=== PATIENT | male | born 1960 | race Caucasian/White ===

== ENCOUNTER 2016-09-10 14:24 | Emergency (ER) | payer OTHER ==
[~2016-09-10] VITALS: Ht 167.6 cm; Wt 83.5 kg
[~2016-09-10 14:24] MED LIST: HYDR-762 PO; OMEP40CA3 PO; ZOF8 PO
[2016-09-10 14:34] VITALS: Ht 167.6 cm; Wt 83.5 kg
[2016-09-10] MEDS ORDERED: PANTOPRAZOLE (EC) 40 MG TAB PO ONE (15:30)
[2016-09-10] MEDS ORDERED: LIDOCAINE/MYLANTA 40 ML BTL PO ONE (15:30)
[2016-09-10] MEDS ORDERED: OMEP40CA6 PO (16:22)
--- NOTE | 2016-09-10 16:44 | ERD ---
ER Documentation Chief Complaint Date/Time DATE: 09/10/16 TIME: 16:41 Chief Complaint epigastric pain HPI 55-year-old male with a past medical history of gastritis presents the ED complaining of epigastric pain that started earlier today. States that he ran out of his omeprazole medication and is here for a medication refill. States that this epigastric pain feels like his gastritis. Denies that food worsens his pain. Denies any fever, chills, chest pain, shortness of breath, cough, nausea, vomiting, diarrhea. Denies any scrotal pain, dysuria, urgency, frequency, hematuria. ROS All systems reviewed and are negative except as per history of present illness. Medications Home Meds Active Scripts Omeprazole* (Omeprazole*) 40 Mg Capsule., 40 MG PO DAILY, #30 CAP Prov:AWA RAYO PA-C 09/10/16 Hydrocodone Bit-Acetaminophen* ([place]*) 10-325 Mg Tablet, 1 TAB PO Q6 Y for PAIN , #10 TAB Prov:KATHI CULVER MD 12/20/15 Ondansetron Hcl* (Zofran* ODT) 8 mg -ODT Tab.disper, 8 MG PO Q6 Y for NAUSEA AND /OR VOMITING, #20 TAB Prov:KATHI CULVER MD 12/20/15 Omeprazole* (Prilosec*) 40 Mg Capsule., 40 MG PO DAILY, #60 CAP Prov:KATHI CULVER MD 12/20/15 Allergies Allergies: Coded Allergies: No Known Allergy (Unverified , 12/20/15) PMhx/Soc History of Surgery: No Anesthesia Reaction: No Hx Neurological Disorder: No Hx Respiratory Disorders: No Hx Cardiac Disorders: No Hx Psychiatric Problems: No Hx Miscellaneous Medical Probl: No Hx Alcohol Use: No Hx Substance Use: No Hx Tobacco Use: Yes Smoking Status: Current some day smoker Physical Exam Vitals Vital Signs Date Time Temp Pulse Resp B/P Pulse Ox O2 Delivery O2 Flow Rate FiO2 09/10/16 14:34 98.2 73 18 121/70 100 Physical Exam Const: Odw-onw-sjhkchmsp, well-nourished. In no acute distress. Head: Atraumatic, normocephalic Eyes: Normal Conjunctiva without injection. No purulent discharge. ENT: Normal external ear, nose. Moist oropharynx without tonsillar exudates. Non -erythematous pharynx. Uvula midline. No drooling. No trismus. Neck: No cervical midline tenderness. Full range of motion. No meningismus. No cervical lymphadenopathy. No JVD. Resp: Clear to auscultation bilaterally. No wheezing, rhonchi, rales, or crackles. No accessory muscle use. No retractions. Cardio: Regular rate and rhythm. No murmurs, rubs or gallops. Abd: Soft, tenderness to palpation of epigastric, non distended. Normal bowel sounds. No palpable masses. No rebound tenderness. No guarding. Negative McBurney's point. Negative psoas sign. Negative obturator sign. Skin: No petechiae or rashes Back: No midline tenderness. No CVA tenderness. Ext: No cyanosis, or edema. Neur: Awake and alert. Normal gait. Normal coordination. Psych: Normal Mood and Affect Results 24 hrs Current Medications Medications (Trade) Dose Ordered Sig/Ashanti Route PRN Reason Start Time Stop Time Status Last Admin Dose Admin Miscellaneous Medication (Gi Cocktail (2)) 40 ml ONCE ONCE PO 09/10/16 15:30 09/10/16 15:31 DC 09/10/16 16:10 Pantoprazole (Protonix Tab) 40 mg ONCE ONCE PO 09/10/16 15:30 09/10/16 15:31 DC 09/10/16 16:10 Procedures/MDM 55-year-old male with with a past medical history of gastritis presents the ED complaining of epigastric pain. Patient is afebrile nontoxic appearing. Patient has normal vital signs. Patient was given GI cocktail, Protonix here in the ED with improvement of his pain. Patient's pain is likely due to gastritis. A differential diagnosis considered includes but is not limited to gastritis, GERD, peptic ulcer disease, cholecystitis, choledocholithiasis, cholangitis, pancreatitis, appendicitis, bowel obstruction, ileus, volvulus, nephrolithiasis, pyelonephritis, hepatitis, perforated viscus, diverticulitis, abdominal hernia, acute abdomen, mesenteric ischemia or other emergent conditions. Blood work consisting of CBC, CMP, lipase was discussed with the patient at this time however he stated that he did not want to obtain blood work. Stated that this feels like his gastritis. Low suspicion for acute abdomen, cholecystitis, gallstone pancreas-itis, pancreatitis, appendicitis, or other emergent conditions. 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 Instructed patient to return to the ED sooner for any worsening symptoms. Patient's questions were answered. Patient understood and agreed with discharge plan. Patient discharged stable. Departure Diagnosis: Primary Impression: Epigastric pain Condition: Stable Patient Instructions: Gastritis (Adult), Gastritis Vs. Ulcer Referrals: [facility] Usted se baker hecho un examen mdico de control que le indica que no est en magdalena condicin que requiera tratamiento urgente en el Departamento de Emergencia. Un estudio ms profundo y el tratamiento de richardson condicin pueden esperar sin ningn riesgo hasta que usted sea atendida/o en el consultorio de richardson mdico o magdalena cl joann. Es responsabilidad suya arreglar magdalena caitlin para el seguimiento del scott. MANEJO DE CONDICIONES NO URGENTES EN EL FUTURO 1) Si usted tiene un mdico de atencin primaria: Usted debera llamar a richardson mdico de atencin primaria antes de venir al departamento de emergencia. Despus de las horas de consultorio, richardson doctor o richardson asociado/a est disponible por telfono. El mdico o enfermero de chace en el servicio telefnico puede asesorarle por miguel medio para atender el problema, o scott contrario se puede programar magdalena caitlin. 2) Si usted no tiene un mdico de atencin primaria: Llame al mdico o clnica de referencia que aparece abajo elen las horas de consultorio para hacer magdalena caitlin para que le vean. CLINICAS: [facility] 220 [phone] [address] [facility] 907 [phone] [address] [facility] 679 [phone] [facility] [phone] [facility]. [place] [id number] [phone] [facility]. [phone] [address] [facility]. [facility] () Usangelica se baker hecho un examen mdico de control que le indica que no est en magdalena condicin que requiera tratamiento urgente en el Departamento de Emergencia. Un estudio ms profundo y el tratamiento de richardson condicin pueden esperar sin ningn riesgo hasta que usted sea atendida/o en el consultorio de richardson mdico o magdalena cl joann. Es responsabilidad suya arreglar magdalena caitlin para el seguimiento del scott. MANEJO DE CONDICIONES NO URGENTES EN EL FUTURO 1) Si usted tiene un mdico de atencin primaria: Usted debera llamar a richardson mdico de atencin primaria antes de venir al departamento de emergencia. Despus de las horas de consultorio, richardson doctor o richardson asociado/a est disponible por telfono. El mdico o enfermero de chace en el servicio telefnico puede asesorarle por miguel medio para atender el problema, o scott contrario se puede programar magdalena caitlin. 2) Si usted no tiene un mdico de atencin primaria: Llame al mdico o condado institucions de referencia que aparece abajo elen las horas de consultorio para hacer magdalena caitlin para que le vean. SI USTED NO PUEDE PAGAR PARA ROSALINDA UN MEDICO puede ir a: [facility] [address] [place] [address] [facility] [address] [place] [address] [facility] [address] [place] [address] PARA OPAL [facility] [address] [place] [address] Additional Instructions: Visite a richardson mdico danielleana para un EXAMEN.Regrese a estas instalaciones si no se mejora sid esperbamos o sid le dijimos. AWA RAYO PA-C Sep 10, 2016 16:43
== END 2016-09-10 16:41 | disposition home or self-care (01) ==
LOC: FTE 14:24
DX: R10.13 Epigastric pain (principal); F17.210 Nicotine dependence, cigarettes, uncomplicated
CPT/HCPCS: 99283

== ENCOUNTER 2019-03-07 17:31 | Inpatient (IN) | payer BC, OTHER ==
[2019-03-07] VITALS (7 sets, daily range): BP systolic 107–134; BP diastolic 62–70; PULSE 70–77; RESP 14–22; Ht 167.6 cm; Wt 79.5 kg
[~2019-03-07] VITALS: Ht 167.6 cm; Wt 79.5 kg
[~2019-03-07 17:31] MED LIST changes: +OMEP40CA6 PO
[2019-03-07] MEDS ORDERED: ONDANSETRON 4 MG INJ IV STA (18:57)
[2019-03-07] MEDS ORDERED: PIPER-TAZO 3.375 GM IV (PMX) 100 ML IVPB STA (18:57)
[2019-03-07] MEDS ORDERED: morphine 4 MG/ML VIAL IV STA ×2 (18:57→19:39)
[2019-03-07] MEDS ORDERED: SODIUM CHLORIDE 0.9% 1L BAG IV* STA (18:58)
--- NOTE | 2019-03-07 19:08 | ERD ---
ER Documentation Chief Complaint Chief Complaint c/o epigastric pain started yesterday HPI 58-year-old male presenting with centralized abdominal pain since yesterday that has significantly worsened today. He denies any associated nausea, vomiting, fever, chills, constipation, or diarrhea. No melena or hematochezia. Had one bowel movement today which was normal. Pain is severe, he is unable to describe it. He states it is all over his abdomen now. No alleviating or exacerbating factors. ROS All systems reviewed and are negative except as per history of present illness. Medications Home Meds Active Scripts Omeprazole* (Omeprazole*) 40 Mg Capsule., 40 MG PO DAILY, #30 CAP Prov:AWA RAYO PA-C 09/10/16 Hydrocodone Bit-Acetaminophen* ([place]*) 10-325 Mg Tablet, 1 TAB PO Q6 PRN for PAIN, #10 TAB Prov:KATHI CULVER MD 12/20/15 Ondansetron Hcl* (Zofran* ODT) 8 mg -ODT Tab.disper, 8 MG PO Q6 PRN for NAUSEA AND/OR VOMITING, #20 TAB Prov:KATHI CULVER MD 12/20/15 Omeprazole* (Prilosec*) 40 Mg Capsule., 40 MG PO DAILY, #60 CAP Prov:KATHI CULVER MD 12/20/15 Allergies Allergies: Coded Allergies: No Known Allergy (Unverified , 12/20/15) PMhx/Soc History of Surgery: No Anesthesia Reaction: No Hx Neurological Disorder: No Hx Respiratory Disorders: No Hx Cardiac Disorders: No Hx Psychiatric Problems: No Hx Miscellaneous Medical Probl: Yes Hx Alcohol Use: No Hx Substance Use: No Hx Tobacco Use: Yes FmHx Family History: No diabetes Physical Exam Vitals Vital Signs Date Temp Pulse Resp B/P (MAP) Pulse Ox O2 O2 Flow FiO2 Time Delivery Rate 03/07/19 97.1 89 20 126/67 97 17:36 (86) Physical Exam Const: Writhing around in bed, in significant distress due to pain. No diaphoresis. Nontoxic Head: Atraumatic Eyes: Normal Conjunctiva ENT: Normal External Ears, Nose and Mouth. Neck: Full range of motion. No meningismus. Resp: Clear to auscultation bilaterally Cardio: Regular rate and rhythm, no murmurs Abd: Distended, rigid, diffusely tender to palpation with peritoneal signs. Hypoactive bowel sounds Skin: No petechiae or rashes Back: No midline or flank tenderness Ext: No cyanosis, or edema Neur: Awake and alert Psych: Normal Mood and Affect Result Diagram: 03/07/19190503/07/191905 Results 24 hrs Laboratory Tests Test 03/07/19 19:06 03/07/19 19:35 White Blood Count 14.2 10^3/ul Red Blood Count 5.59 10^6/ul Hemoglobin 16.3 g/dl Hematocrit 47.7 % Mean Corpuscular Volume 85.3 fl Mean Corpuscular Hemoglobin 29.2 pg Mean Corpuscular Hemoglobin Concent 34.2 g/dl Red Cell Distribution Width 13.5 % Platelet Count 269 10^3/UL Mean Platelet Volume 10.9 fl Immature Granulocytes % 0.400 % Neutrophils % 88.5 % Lymphocytes % 6.0 % Monocytes % 4.9 % Eosinophils % 0.0 % Basophils % 0.2 % Nucleated Red Blood Cells % 0.0 /100WBC Immature Granulocytes # 0.050 10^3/ul Neutrophils # 12.6 10^3/ul Lymphocytes # 0.9 10^3/ul Monocytes # 0.7 10^3/ul Eosinophils # 0.0 10^3/ul Basophils # 0.0 10^3/ul Nucleated Red Blood Cells # 0.0 10^3/ul Prothrombin Time 12.8 Sec Prothrombin Time Ratio 1.0 INR International Normalized Ratio 0.95 Activated Partial Thromboplast Time 24.9 Sec Sodium Level 142 mmol/L Potassium Level 4.1 mmol/L Chloride Level 105 mmol/L Carbon Dioxide Level 23 mmol/L Anion Gap 14 Blood Urea Nitrogen 18 mg/dl Creatinine 1.08 mg/dl Est Glomerular Filtrat Rate mL/min > 60 mL/min Glucose Level 157 mg/dl Calcium Level 9.2 mg/dl Total Bilirubin 0.8 mg/dl Direct Bilirubin 0.00 mg/dl Indirect Bilirubin 0.8 mg/dl Aspartate Amino Transf (AST/SGOT) 33 IU/L Alanine Aminotransferase (ALT/SGPT) 23 IU/L Alkaline Phosphatase 71 IU/L Troponin I Pending Total Protein 8.6 g/dl Albumin 4.5 g/dl Globulin 4.10 g/dl Albumin/Globulin Ratio 1.09 Lipase 109 U/L POC Venous Lactate 2.0 mmol/L Current Medications Medications Dose Sig/Ashanti Start Time Status Last (Trade) Ordered Route PRN Stop Time Admin Dose Reason Admin Morphine 4 mg ONCE STAT 03/07/19 DC 03/07/19 Sulfate IV 18:57 03/07/19 19:10 (morphine) 18:59 Ondansetron 4 mg ONCE STAT 03/07/19 DC 03/07/19 HCl (Zofran IV 18:57 03/07/19 19:10 Inj) 18:59 Piperacillin 100 ml @ ONCE STAT 03/07/19 DC 03/07/19 Sod/ 200 mls/hr IVPB 18:57 03/07/19 19:27 Tazobactam 19:26 Sod Sodium 2,390 ml BOLUS OVER 2 03/07/19 DC 03/07/19 Chloride HOURS STAT 18:58 03/07/19 19:10 (NS) IV* 18:59 Morphine 4 mg ONCE STAT 03/07/19 DC Sulfate IV 19:39 03/07/19 (morphine) 19:40 Lidocaine 15 ml ONCE ONCE 03/07/19 (Xylocaine PO 20:00 03/07/19 (Viscous)) 20:01 Procedures/MDM EMERGENT LABS AND DIAGNOSTIC STUDIES: Lab Results above were reviewed and interpreted by me. CBC: Leukocytosis, concerning for infection CMP: No evidence of clinically significant electrolyte abnormality, acidosis, renal failure, hypoglycemia, liver disease, or biliary obstruction Lipase: no evidence of pancreatitis Troponin within normal limits, not indicative of cardiac ischemia Lactate within normal limits without evidence of sepsis or tissue hypoperfusion UA: no evidence of infection 12-lead EKG was interpreted by Subha Daniel MD: Normal Sinus Rhythm with ventricular rate of 74 beats per minute Normal axis Normal intervals No acute ST or T wave changes suggestive of acute ischemia or STEMI. Radiology Results as interpreted by Radiology below were reviewed by Kassandra Daniel MD: CT abdomen and pelvis shows evidence of acute appendicitis with small bowel obstruction. No perforation per radiologist Initial Nursing notes reviewed. Previous Medical Records requested via the Electronic Health Record. EMERGENCY DEPARTMENT COURSE / MEDICAL DECISION MAKING: Patient presenting with generalized abdominal pain. Exam did show signs of acute surgical abdomen. Sepsis work-up was initiated. IV fluids and broad- spectrum antibiotics given. No evidence of severe sepsis or septic shock. CT did confirm evidence of appendicitis without evidence of abscess or perforation. He also has an associated small bowel obstruction. NG tube was placed. Patient will be admitted for further management. Surgeon on-call notified. Accepting Care Team: Current data and ongoing care discussed. Time: Time of admission Primary Provider: Dr. Elliott Consulting: Dr. Balderas Outstanding Data: none Departure Diagnosis: Primary Impression: Acute appendicitis with generalized peritonitis Appendicitis gangrene presence: without gangrene Appendicitis perforation presence: unspecified whether perforation present Appendicitis abscess presence: without abscess Qualified Codes: K35.20 - Acute appendicitis with generalized peritonitis, without abscess Additional Impression: Small bowel obstruction Condition: Serious SONIA DANIEL MD Mar 07, 2019 19:08
[2019-03-07] MEDS ORDERED: ONDANSETRON 4 MG INJ IV PRN ×3 (20:00→23:30)
[2019-03-07] MEDS ORDERED: LIDOCAINE 2% VISC 15 ML CUP PO ONE (20:00)
--- NOTE | 2019-03-07 21:23 | PREAC ---
Date/Time of Note Date/Time of Note DATE: 03/07/19 TIME: 21:22 Anesthesia Eval and Record Evaluation Time Pre-Procedure Interview DATE: 03/07/19 TIME: 21:22 Age 58 Sex male NPO: 8 hrs Preoperative diagnosis Acute appendicitis Planned procedure Laparoscopic appendectomy Past Medical History Past Medical History: Includes Cardio: HTN Pulm: Smoking Hx GI: GERD Surgery & Anesthesia Issues No known issue Meds Anticoagulation: No Beta Jayla within 24 hr: No Reason Beta Jayla not given: Pt. not on B-Jayla Active Scripts Omeprazole* (Omeprazole*) 40 Mg Capsule., 40 MG PO DAILY, #30 CAP Prov:AWA RAYO PA-C 09/10/16 Hydrocodone Bit-Acetaminophen* ([place]*) 10-325 Mg Tablet, 1 TAB PO Q6 PRN for PAIN, #10 TAB Prov:KATHI CULVER MD 12/20/15 Ondansetron Hcl* (Zofran* ODT) 8 mg -ODT Tab.disper, 8 MG PO Q6 PRN for NAUSEA AND/OR VOMITING, #20 TAB Prov:KATHI CULVER MD 12/20/15 Omeprazole* (Prilosec*) 40 Mg Capsule., 40 MG PO DAILY, #60 CAP Prov:KATHI CULVER MD 12/20/15 Current Medications Ondansetron HCl (Zofran Inj) 4 mg BRIDGE ORDER PRN IV NAUSEA/VOMITING; Start 03/07/19 at 20:00; Stop 03/08/19 at 19:59 Meds reviewed: Yes Allergies Coded Allergies: No Known Allergy (Unverified , 12/20/15) Allergies Reviewed: Yes Labs/Studies Labs Reviewed: Reviewed by anesthesiologist Result Diagram: 03/07/19190503/07/191905 Laboratory Tests 03/07/19 19:06 test: N/A Studies: ECG, CXR, Other Pre-procedure Exam Last vitals Vital Signs Date Temp Pulse Resp B/P (MAP) Pulse Ox O2 O2 Flow FiO2 Time Delivery Rate 03/07/19 100.9 81 22 141/88 97 Room Air 20:20 (105) Airway: Adequate mouth opening, Adequate thyromental dist Mallampati: Mallampati II Teeth: Normal Lung: Normal Heart: Normal ASA Physical Status ASA physical status: 2 Emergency: E Planned Anesthetic General/MAC: ETT, Other (RSI) Planned Pain Management Parenteral pain med, Local by surgeon Pre-operative Attestations Prior to commencing anesthesia and surgery, the patient was re-evaluated, there was verification of: *The patient's identity *The results of appropriate recent lab work and preoperative vital signs *The above evaluation not changing prior to induction *Anesthetic plan, risk benefits, alternative and complications discussed with patient/family; questions answered; patient/family understands, accepts and wishes to proceed. ELVA COELLO MD Mar 07, 2019 21:23
[2019-03-07] MEDS ORDERED: MIDAZOLAM 1 MG/ML 2 ML INJ ONE (21:34)
[2019-03-07] MEDS ORDERED: FAMOTIDINE 20 MG INJ ONE (21:35)
[2019-03-07] MEDS ORDERED: FENTAnyl 50 MCG/ML VIAL IV PRN ×2 (22:00)
[2019-03-07] MEDS ORDERED: BUPIVACAINE 0.5%/EPI (SDV) 30 ML INJ ONE (22:00)
[2019-03-07] MEDS ORDERED: ACETAMINOPHEN 1000MG/100ML IV 100 ML IVPB ONE (22:00)
[2019-03-07] MEDS ORDERED: HYDROmorphONE 1 MG/5 ML IV SYRINGE IV PRN ×3 (22:00)
[2019-03-07] MEDS ORDERED: LABETALOL HCL 20MG INJ IV PRN (22:00)
--- NOTE | 2019-03-07 22:07 | CONS ---
Assessment/Plan Assessment/Plan Assessment/Plan (Daily) Acute appendicitis complicated by partial small bowel obstruction. Patient is going to laparoscopic possible open appendectomy.We discussed risks and benefits were discussed possible side effects, possible complications including but not limited to bleeding, infection, injury to other organs, anesthesia complication, patient understood risk and benefits and wished to proceed. Consultation Date/Type/Reason Admit Date/Time Mar 07, 2019 at 19:43 Date of Consultation: Mar 07, 2019 Type of Consult Surgical Date/Time of Note DATE: 03/07/19 TIME: 22:03 Hx of Present Illness 78-year-old female no significant past medical history presents with her daughter who is interpreting. The patient has had approximately 2 days of epigastric abdominal pain that radiates to the bilateral back. Patient notes the pain is sharp, with associated nausea and vomiting. The emesis is nonbloody and nonbilious. 2 episodes of looser stool. No recent travel, sick contacts, antibiotics. She denies any chest pain or exertional symptoms. No clear triggers or alleviating factors. She denies any fevers. No abdominal surgery history. Symptoms are moderate to severe currently. CT performed which showed partial small bowel obstruction secondary to appendicitis. Dilated appendix with fat stranding. Constitutional: no complaints, improved Eyes: no complaints ENT: no complaints Respiratory: no complaints Cardiovascular: no complaints Gastrointestinal: no complaints Genitourinary: no complaints Musculoskeletal: no complaints Skin: no complaints Neurologic: no complaints Endocrine: no complaints Lymphatic: no complaints Psychological: no complaints, nl mood/affect Immunologic: no complaints Past Medical History Medical History: no pertinent history Home Meds Active Scripts Omeprazole* (Omeprazole*) 40 Mg Capsule., 40 MG PO DAILY, #30 CAP Prov:AWA RAYO PA-C 09/10/16 Hydrocodone Bit-Acetaminophen* ([place]*) 10-325 Mg Tablet, 1 TAB PO Q6 PRN for PAIN, #10 TAB Prov:KATHI CULVER MD 12/20/15 Ondansetron Hcl* (Zofran* ODT) 8 mg -ODT Tab.disper, 8 MG PO Q6 PRN for NAUSEA AND/OR VOMITING, #20 TAB Prov:KATHI CULVER MD 12/20/15 Omeprazole* (Prilosec*) 40 Mg Capsule., 40 MG PO DAILY, #60 CAP Prov:KATHI CULVER MD 12/20/15 Medications Current Medications Ondansetron HCl (Zofran Inj) 4 mg BRIDGE ORDER PRN IV NAUSEA/VOMITING; Start 03/07/19 at 20:00; Stop 03/08/19 at 19:59 Hydromorphone HCl (Dilaudid) 0.2 mg PACU PRN IV MILD PAIN 1-3; Start 03/07/19 at 22:00; Status UNV Hydromorphone HCl (Dilaudid) 0.4 mg PACU PRN IV MOD PAIN 4-6; Start 03/07/19 at 22:00; Status UNV Hydromorphone HCl (Dilaudid) 0.6 mg PACU PRN IV SEVERE PAIN 7-10; Start 03/07/19 at 22:00; Status UNV Fentanyl (Sublimaze) 25 mcg PACU ORDER PRN IV MILD PAIN 1-3; Start 03/07/19 at 22:00; Status UNV Fentanyl (Sublimaze) 50 mcg PACU ORDER PRN IV MOD PAIN 4-6; Start 03/07/19 at 22:00; Status UNV Fentanyl (Sublimaze) 75 mcg PACU ORDER PRN IV SEVERE PAIN 7-10; Start 03/07/19 at 22:00; Status UNV Ondansetron HCl (Zofran Inj) 4 mg PACU ORDER PRN IV NAUSEA/VOMITING; Start 03/07/19 at 22:00; Status UNV Labetalol HCl (Labetalol) 5 mg PACU ORDER PRN IV HIGH BLOOD PRESSURE; Start 03/07/19 at 22:00; Status UNV Acetaminophen 100 ml @ 400 mls/hr ONCE ONCE IVPB ; Start 03/07/19 at 22:00; Stop 03/07/19 at 22:14; Status UNV Allergies: Coded Allergies: No Known Allergy (Unverified , 12/20/15) Past Surgical History Past Surgical Hx: no surgical history Family History Significant Family History: no pertinent family hx Social History Smoking Status: Current some day smoker Exam/Review of Systems Exam Vitals Vital Signs Date Temp Pulse Resp B/P (MAP) Pulse Ox O2 O2 Flow FiO2 Time Delivery Rate 03/07/19 100.9 81 22 141/88 97 Room Air 20:20 (105) Constitutional: alert, oriented, well developed Psych: no complaints, nl mood/affect Head: normocephalic, atraumatic Eyes: nl conjunctiva, EOMI, nl lids, nl sclera, PERRL ENMT: nl external ears & nose, nl lips & teeth, nl nasal mucosa & septum Neck: supple, non-tender Respiratory: clear to auscultation, normal air movement Cardiovascular: regular rate and rhythm, nl pulses Gastrointestinal: other (Abdomen is distended there is a marked right lower quadrant tenderness in the usual to the epigastrium.) Musculoskeletal: nl extremities to inspection, nl gait and stance Extremities: normal pulses Neurological: ATTRACTION ATTENDANT II-XII intact, nl mental status, nl speech, nl strength Skin: nl turgor; No rash or lesions Lymph: nl lymph nodes Results Result Diagram: 03/07/19190503/07/191905 Results 24hrs Laboratory Tests Test 03/07/19 19:06 03/07/19 19:35 White Blood Count 14.2 H Red Blood Count 5.59 Hemoglobin 16.3 Hematocrit 47.7 Mean Corpuscular Volume 85.3 Mean Corpuscular Hemoglobin 29.2 Mean Corpuscular Hemoglobin Concent 34.2 Red Cell Distribution Width 13.5 Platelet Count 269 Mean Platelet Volume 10.9 H Immature Granulocytes % 0.400 Neutrophils % 88.5 H Lymphocytes % 6.0 L Monocytes % 4.9 Eosinophils % 0.0 Basophils % 0.2 Nucleated Red Blood Cells % 0.0 Immature Granulocytes # 0.050 H Neutrophils # 12.6 H Lymphocytes # 0.9 Monocytes # 0.7 Eosinophils # 0.0 Basophils # 0.0 Nucleated Red Blood Cells # 0.0 Prothrombin Time 12.8 Prothrombin Time Ratio 1.0 INR International Normalized Ratio 0.95 Activated Partial Thromboplast Time 24.9 Sodium Level 142 Potassium Level 4.1 Chloride Level 105 Carbon Dioxide Level 23 Anion Gap 14 H Blood Urea Nitrogen 18 Creatinine 1.08 Est Glomerular Filtrat Rate mL/min > 60 Glucose Level 157 Calcium Level 9.2 Total Bilirubin 0.8 Direct Bilirubin 0.00 Indirect Bilirubin 0.8 Aspartate Amino Transf (AST/SGOT) 33 Alanine Aminotransferase (ALT/SGPT) 23 Alkaline Phosphatase 71 Troponin I < 0.012 Total Protein 8.6 H Albumin 4.5 Globulin 4.10 H Albumin/Globulin Ratio 1.09 Lipase 109 Lactic Acid Level 2.4 *H POC Venous Lactate 2.0 Medications Medication Current Medications Ondansetron HCl (Zofran Inj) 4 mg BRIDGE ORDER PRN IV NAUSEA/VOMITING; Start 03/07/19 at 20:00; Stop 03/08/19 at 19:59 Hydromorphone HCl (Dilaudid) 0.2 mg PACU PRN IV MILD PAIN 1-3; Start 03/07/19 at 22:00; Status UNV Hydromorphone HCl (Dilaudid) 0.4 mg PACU PRN IV MOD PAIN 4-6; Start 03/07/19 at 22:00; Status UNV Hydromorphone HCl (Dilaudid) 0.6 mg PACU PRN IV SEVERE PAIN 7-10; Start 03/07/19 at 22:00; Status UNV Fentanyl (Sublimaze) 25 mcg PACU ORDER PRN IV MILD PAIN 1-3; Start 03/07/19 at 22:00; Status UNV Fentanyl (Sublimaze) 50 mcg PACU ORDER PRN IV MOD PAIN 4-6; Start 03/07/19 at 22:00; Status UNV Fentanyl (Sublimaze) 75 mcg PACU ORDER PRN IV SEVERE PAIN 7-10; Start 03/07/19 at 22:00; Status UNV Ondansetron HCl (Zofran Inj) 4 mg PACU ORDER PRN IV NAUSEA/VOMITING; Start 03/07/19 at 22:00; Status UNV Labetalol HCl (Labetalol) 5 mg PACU ORDER PRN IV HIGH BLOOD PRESSURE; Start 03/07/19 at 22:00; Status UNV Acetaminophen 100 ml @ 400 mls/hr ONCE ONCE IVPB ; Start 03/07/19 at 22:00; Stop 03/07/19 at 22:14; Status UNV LUKE PRESTON MD Mar 07, 2019 22:07
[2019-03-07] MEDS ORDERED: ONDANSETRON 4 MG INJ ONE (22:38)
[2019-03-07] MEDS ORDERED: DEXAMETHASONE 4 MG/ML 5 ML INJ ONE (22:38)
[2019-03-07] MEDS ORDERED: LABETALOL HCL 20MG INJ ONE (22:48)
[2019-03-07] MEDS ORDERED: SUGAMMADEX SODIUM 200 MG/2 ML VIAL IV ONE (23:11)
--- NOTE | 2019-03-07 23:17 | OPR ---
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 We discussed risks and benefits were discussed possible side effects, possible complications including but not limited to bleeding, infection, injury to other organs, anesthesia complication, patient understood risk and benefits and wished to proceed. Procedure Description The risks, benefits and alternatives of the procedure were discussed with the patient and informed consent was obtained. We discussed with the patient and the family possibility of the bleeding, infection, injury to other organs. Patient was brought to operating room positioned supine. General endotracheal anesthesia was induced. Abdomen was prepped and draped in the usual sterile fashion. Timeout was performed. Antibiotics were given previously. Through the small infraumbilical incision the Veress needle was placed and the abdomen was insufflated with CO2 up to 15 mmHg. Through the same incision 5 mm trocar was placed under direct control of the laparoscope. 2 additional trocars were placed in the midline, 12 mm trocar just above the pubis and 5 mm trocar midline between the pubis and the umbilicus. The appendix was visualized and was found to be acutely inflamed with phlegmon. The window was created using blunt dissection at the mesentery of the appendix next to the cecum and appendix was divided using endoscopic stapler with white load. The additional load of the same stapler was used to divide the mesentery. The hemostasis was confirmed. Local bleeding was controlled with the cautery. The abdomen was irrigated all the fluid was carefully sucked out. There is appendix was removed through the 12 mm trocar using Endocatch. The abdomen was desufflated all trocars were removed. The 12 mm trocar was closed in 2 layers using 0 Vicryl to the fascia and 4-0 Monocryl for the skin. The 5 mm trocars were closed just using 4-0 Monocryl to the skin. Patient tolerated procedure well was extubated transferred to recovery room. LUKE PRESTON MD Mar 07, 2019 23:17
[2019-03-07] MEDS ORDERED: IBUPROFEN 600 MG TAB PO PRN (23:30)
[2019-03-07] MEDS ORDERED: DIPHENHYDRAMINE 50 MG INJ IV PRN (23:30)
[2019-03-07] MEDS ORDERED: METOCLOPRAMIDE 10 MG INJ IV PRN (23:30)
[2019-03-07] MEDS ORDERED: ACETAMINOPHEN 325 MG TAB PO PRN (23:30)
--- NOTE | 2019-03-07 23:31 | PAC ---
Date/Time of Note Date/Time of Note DATE: 03/07/19 TIME: 23:30 Post-Anesthesia Notes Post-Anesthesia Note Last documented vital signs T 98.4 RR 14 HR 74 BP 125/63 Sp02 97% Vital Signs Date Temp Pulse Resp B/P (MAP) Pulse Ox O2 O2 Flow FiO2 Time Delivery Rate 03/07/19 100.9 81 22 141/88 97 Room Air 20:20 (105) Activity: WNL Respiratory function: WNL Cardiovascular function: WNL Mental status: Baseline Pain reasonably controlled: Yes Hydration appropriate: Yes Nausea/Vomiting absent: Yes ELVA COELLO MD Mar 07, 2019 23:31
[2019-03-07] MEDS: FENTAnyl 50 MCG/ML VIAL IV PRN ×2 (23:35→23:46)
[2019-03-08] VITALS (14 sets, daily range): BP systolic 102–129; BP diastolic 56–71; PULSE 33–75; RESP 15–20
[2019-03-08] MEDS: D5W-0.45 NACL + KCL 20 MEQ 1,000 ML IV SCH ×3 (01:39→19:17)
[2019-03-08] MEDS: PIPER-TAZO 3.375 GM IV (PMX) 100 ML IVPB SCH ×4 (01:40→17:47)
--- NOTE | 2019-03-08 07:33 | HP ---
Date/Time of Note Date/Time of Note DATE: 03/08/19 TIME: 07:30 Assessment/Plan VTE Prophylaxis Risk score (from [facility] [place])>0 risk: 3 SCD applied (from [facility] [place]): Yes Pharmacological prophylaxis: NA/contraindicated Pharm contraindication: other (Patient has had abdominal surgery) Lines/Catheters IV Catheter Type (from [facility]): Peripheral IV Assessment/Plan Assessment/Plan 58-year-old male presents with abdominal pain secondary to Acute phlegmonous gangrenous appendicitis status post laparoscopic appendectomy PLAN -Pain management -Continue IV antibiotic -Clear liquid diet, advance as tolerated -DC when cleared by surgeon Result Diagram: 03/07/19 19003/07/19 190 Results 24hrs Laboratory Tests Test 03/07/19 19:06 03/07/19 19:35 03/07/19 22:10 03/08/19 00:57 White Blood Count 14.2 H Red Blood Count 5.59 Hemoglobin 16.3 Hematocrit 47.7 Mean Corpuscular Volume 85.3 Mean Corpuscular 29.2 Hemoglobin Mean Corpuscular 34.2 Hemoglobin Concent Red Cell Distribution 13.5 Width Platelet Count 269 Mean Platelet Volume 10.9 H Immature Granulocytes % 0.400 Neutrophils % 88.5 H Lymphocytes % 6.0 L Monocytes % 4.9 Eosinophils % 0.0 Basophils % 0.2 Nucleated Red Blood 0.0 Cells % Immature Granulocytes # 0.050 H Neutrophils # 12.6 H Lymphocytes # 0.9 Monocytes # 0.7 Eosinophils # 0.0 Basophils # 0.0 Nucleated Red Blood 0.0 Cells # Prothrombin Time 12.8 Prothrombin Time Ratio 1.0 INR International 0.95 Normalized Ratio Activated 24.9 Partial Thromboplast Time Sodium Level 142 Potassium Level 4.1 Chloride Level 105 Carbon Dioxide Level 23 Anion Gap 14 H Blood Urea Nitrogen 18 Creatinine 1.08 Est Glomerular Filtrat > 60 Rate mL/min Glucose Level 157 Calcium Level 9.2 Total Bilirubin 0.8 Direct Bilirubin 0.00 Indirect Bilirubin 0.8 Aspartate Amino 33 Transf (AST/SGOT) Alanine 23 Aminotransferase (ALT/SG PT) Alkaline Phosphatase 71 Troponin I < 0.012 Total Protein 8.6 H Albumin 4.5 Globulin 4.10 H Albumin/Globulin Ratio 1.09 Lipase 109 Lactic Acid Level 2.4 *H 1.5 1.6 POC Venous Lactate 2.0 HPI/ROS Admit Date/Time Admit Date/Time Mar 07, 2019 at 19:43 Hx of Present Illness Patient is a 58-year-old male with a history of GERD who presents the ER complaining of abdominal pain x2 days. Pain is mainly localized in the epigastric area. In the ER imaging shows acute appendicitis. He already underwent laparoscopic appendectomy with a finding of acute phlegmonous gangrenous appendicitis. Currently patient stable. Abdomen appears slightly distended PMH/Family/Social Past Medical History Medical History: other (See HPI) Medications Current Medications Ondansetron HCl (Zofran Inj) 4 mg BRIDGE ORDER PRN IV NAUSEA/VOMITING; Start 03/07/19 at 20:00; Stop 03/08/19 at 19:59 Piperacillin Sod/ Tazobactam Sod 100 ml @ 200 mls/hr Q6 IVPB Last administered on 03/08/19at 06:37; Admin Dose 200 MLS/HR; Start 03/08/19 at 00:00 Metoclopramide HCl (Reglan) 10 mg Q6H PRN IV NAUSEA AND/OR VOMITING; Start 03/07/19 at 23:30 Ondansetron HCl (Zofran Inj) 4 mg Q6H PRN IV NAUSEA AND/OR VOMITING; Start 03/07/19 at 23:30 Acetaminophen (Tylenol Tab) 650 mg Q6H PRN PO PAIN LEVEL 1-3 OR FEVER; Start 03/07/19 at 23:30 Ibuprofen (Motrin) 600 mg Q6H PRN PO PAIN LEVEL 1-3; Start 03/07/19 at 23:30 Ketorolac Tromethamine (Toradol) 30 mg Q6H PRN IV PAIN; Start 03/07/19 at 23:30; Stop 03/10/19 at 23:29 Hydromorphone HCl (Dilaudid) 0.5 mg Q4H PRN IV PAIN LEVEL 8-10; Start 03/07/19 at 23:30 Acetaminophen/ Hydrocodone Bitart ([place] (5/325)) 1 tab Q6H PRN PO PAIN LEVEL 4-7; Start 03/07/19 at 23:30 Potassium Chloride/Dextrose/ Sod Cl 1,000 ml @ 100 mls/hr Q10H IV Last administered on 03/08/19at 01:39; Admin Dose 100 MLS/HR; Start 03/07/19 at 23:17 Diphenhydramine HCl (Benadryl) 25 mg Q6H PRN IV PRURITUS; Start 03/07/19 at 23:30 Coded Allergies: No Known Allergy (Unverified , 12/20/15) Past Surgical History Past Surgical Hx: other (See HPI) Family History Significant Family History: no pertinent family hx Social History Alcohol Use: other Smoking Status: Former smoker Drug Use: none Exam/Review of Systems Vital Signs Vitals Vital Signs Date Temp Pulse Resp B/P (MAP) Pulse Ox O2 O2 Flow FiO2 Time Delivery Rate 03/08/19 98.6 57 17 110/66 95 07:26 (81) 03/08/19 Nasal 2.0 04:00 Cannula Intake and Output 03/07/19 03/07/19 03/08/19 1515:00 23:00 07:00 IntakeIntake Total 2290 ml OutputOutput Total 805 ml BalanceBalance 1485 ml Exam Constitutional: alert, oriented, well developed Head: normocephalic, atraumatic Eyes: EOMI, PERRL Respiratory: clear to auscultation, normal air movement Cardiovascular: regular rate and rhythm, nl pulses Gastrointestinal: other (Slightly distended. Surgical site clean) Extremities: normal pulses NATALIE MENDOZA MD Mar 08, 2019 07:33
[2019-03-08] MEDS: HYDROmorphONE 0.5 MG/0.5 ML SYG IV PRN ×2 (07:37→15:05)
--- NOTE | 2019-03-08 16:31 | PN ---
Date/Time of Note Date/Time of Note DATE: 03/08/19 TIME: 16:27 Assessment/Plan VTE Prophylaxis [place] [facility] [place]: 3 SCD applied (from [facility]): Yes Pharmacological prophylaxis: LMWH Lines/Catheters IV Catheter Type (from [facility]): Peripheral IV Assessment/Plan Assessment/Plan 1. Acute appendicitis, s/p lap appendectomy on 03/07/2019, follow up with surgery 2. Post op ileus, KUB 3. DVT prophylaxis: lovenox Result Diagram: 03/08/19 0826 03/08/19 0826 Results 24hrs Laboratory Tests Test 03/07/19 19:06 03/07/19 19:35 03/07/19 22:10 03/08/19 00:57 White Blood Count 14.2 H Red Blood Count 5.59 Hemoglobin 16.3 Hematocrit 47.7 Mean Corpuscular Volume 85.3 Mean Corpuscular 29.2 Hemoglobin Mean Corpuscular 34.2 Hemoglobin Concent Red Cell Distribution 13.5 Width Platelet Count 269 Mean Platelet Volume 10.9 H Immature Granulocytes % 0.400 Neutrophils % 88.5 H Lymphocytes % 6.0 L Monocytes % 4.9 Eosinophils % 0.0 Basophils % 0.2 Nucleated Red Blood 0.0 Cells % Immature Granulocytes # 0.050 H Neutrophils # 12.6 H Lymphocytes # 0.9 Monocytes # 0.7 Eosinophils # 0.0 Basophils # 0.0 Nucleated Red Blood 0.0 Cells # Prothrombin Time 12.8 Prothrombin Time Ratio 1.0 INR International 0.95 Normalized Ratio Activated 24.9 Partial Thromboplast Time Sodium Level 142 Potassium Level 4.1 Chloride Level 105 Carbon Dioxide Level 23 Anion Gap 14 H Blood Urea Nitrogen 18 Creatinine 1.08 Est Glomerular Filtrat > 60 Rate mL/min Glucose Level 157 Calcium Level 9.2 Total Bilirubin 0.8 Direct Bilirubin 0.00 Indirect Bilirubin 0.8 Aspartate Amino 33 Transf (AST/SGOT) Alanine 23 Aminotransferase (ALT/SG PT) Alkaline Phosphatase 71 Troponin I < 0.012 Total Protein 8.6 H Albumin 4.5 Globulin 4.10 H Albumin/Globulin Ratio 1.09 Lipase 109 Lactic Acid Level 2.4 *H 1.5 1.6 POC Venous Lactate 2.0 Test 03/08/19 08:26 White Blood Count 14.7 H Red Blood Count 4.80 Hemoglobin 13.9 L Hematocrit 41.0 L Mean Corpuscular Volume 85.4 Mean Corpuscular 29.0 Hemoglobin Mean Corpuscular 33.9 Hemoglobin Concent Red Cell Distribution 13.9 Width Platelet Count 221 Mean Platelet Volume 11.4 H Immature Granulocytes % 0.300 Neutrophils % 91.2 H Lymphocytes % 4.5 L Monocytes % 3.9 Eosinophils % 0.0 Basophils % 0.1 Nucleated Red Blood 0.0 Cells % Immature Granulocytes # 0.050 H Neutrophils # 13.4 H Lymphocytes # 0.7 L Monocytes # 0.6 Eosinophils # 0.0 Basophils # 0.0 Nucleated Red Blood 0.0 Cells # Sodium Level 140 Potassium Level 4.0 Chloride Level 108 Carbon Dioxide Level 23 Anion Gap 9 # Blood Urea Nitrogen 14 Creatinine 0.93 Est Glomerular Filtrat > 60 Rate mL/min Glucose Level 170 Calcium Level 8.5 Total Bilirubin 1.2 Direct Bilirubin 0.00 Indirect Bilirubin 1.2 H Aspartate Amino 19 Transf (AST/SGOT) Alanine 17 Aminotransferase (ALT/SG PT) Alkaline Phosphatase 40 L Total Protein 7.0 # Albumin 3.7 Globulin 3.30 H Albumin/Globulin Ratio 1.12 Subjective 24 Hr Interval Summary Free Text/Dictation abdominal pain passes flatus, no nausea or vomiting Exam/Review of Systems Exam Vitals Vital Signs Date Temp Pulse Resp B/P (MAP) Pulse Ox O2 O2 Flow FiO2 Time Delivery Rate 03/08/19 97.6 63 16 117/59 97 15:27 (78) 03/08/19 Nasal 2.0 09:19 Cannula Intake and Output 03/07/19 03/07/19 03/08/19 1515:00 23:00 07:00 IntakeIntake Total 2290 ml OutputOutput Total 805 ml BalanceBalance 1485 ml Constitutional: alert, oriented, well developed Psych: no complaints, nl mood/affect Head: normocephalic, atraumatic Eyes: nl conjunctiva, EOMI, nl lids, PERRL ENMT: nl external ears & nose, nl lips & teeth, nl nasal mucosa & septum Neck: supple, non-tender Respiratory: clear to auscultation, normal air movement; No congested cough, No crackles/rales, No diminished breath sounds, No in tercostal retraction, No labored breathing, No respirations, No tactile fremitus, No wheezing, No other Cardiovascular: regular rate and rhythm, nl pulses; No bruits, No diastolic murmur, No edema, No gallop, No irregular rhythm, No jugular venous distention (JVD), No murmurs/extra sounds, No rub, No systolic murmur, No S3, No S4, No other Gastrointestinal: nl liver, spleen, bowel sounds (hypoactive), distended Musculoskeletal: nl extremities to inspection Extremities: normal pulses; No calf tenderness, No cyanosis, No clubbing, No edema, No pitting pedal edema, No palpable cord, No tenderness, No other Neurological: SHIPPING & RECEIVING LEAD II-XII intact, nl mental status, nl speech, nl strength Results Results 24hrs Laboratory Tests Test 03/07/19 19:06 03/07/19 19:35 03/07/19 22:10 03/08/19 00:57 White Blood Count 14.2 H Red Blood Count 5.59 Hemoglobin 16.3 Hematocrit 47.7 Mean Corpuscular Volume 85.3 Mean Corpuscular 29.2 Hemoglobin Mean Corpuscular 34.2 Hemoglobin Concent Red Cell Distribution 13.5 Width Platelet Count 269 Mean Platelet Volume 10.9 H Immature Granulocytes % 0.400 Neutrophils % 88.5 H Lymphocytes % 6.0 L Monocytes % 4.9 Eosinophils % 0.0 Basophils % 0.2 Nucleated Red Blood 0.0 Cells % Immature Granulocytes # 0.050 H Neutrophils # 12.6 H Lymphocytes # 0.9 Monocytes # 0.7 Eosinophils # 0.0 Basophils # 0.0 Nucleated Red Blood 0.0 Cells # Prothrombin Time 12.8 Prothrombin Time Ratio 1.0 INR International 0.95 Normalized Ratio Activated 24.9 Partial Thromboplast Time Sodium Level 142 Potassium Level 4.1 Chloride Level 105 Carbon Dioxide Level 23 Anion Gap 14 H Blood Urea Nitrogen 18 Creatinine 1.08 Est Glomerular Filtrat > 60 Rate mL/min Glucose Level 157 Calcium Level 9.2 Total Bilirubin 0.8 Direct Bilirubin 0.00 Indirect Bilirubin 0.8 Aspartate Amino 33 Transf (AST/SGOT) Alanine 23 Aminotransferase (ALT/SG PT) Alkaline Phosphatase 71 Troponin I < 0.012 Total Protein 8.6 H Albumin 4.5 Globulin 4.10 H Albumin/Globulin Ratio 1.09 Lipase 109 Lactic Acid Level 2.4 *H 1.5 1.6 POC Venous Lactate 2.0 Test 03/08/19 08:26 White Blood Count 14.7 H Red Blood Count 4.80 Hemoglobin 13.9 L Hematocrit 41.0 L Mean Corpuscular Volume 85.4 Mean Corpuscular 29.0 Hemoglobin Mean Corpuscular 33.9 Hemoglobin Concent Red Cell Distribution 13.9 Width Platelet Count 221 Mean Platelet Volume 11.4 H Immature Granulocytes % 0.300 Neutrophils % 91.2 H Lymphocytes % 4.5 L Monocytes % 3.9 Eosinophils % 0.0 Basophils % 0.1 Nucleated Red Blood 0.0 Cells % Immature Granulocytes # 0.050 H Neutrophils # 13.4 H Lymphocytes # 0.7 L Monocytes # 0.6 Eosinophils # 0.0 Basophils # 0.0 Nucleated Red Blood 0.0 Cells # Sodium Level 140 Potassium Level 4.0 Chloride Level 108 Carbon Dioxide Level 23 Anion Gap 9 # Blood Urea Nitrogen 14 Creatinine 0.93 Est Glomerular Filtrat > 60 Rate mL/min Glucose Level 170 Calcium Level 8.5 Total Bilirubin 1.2 Direct Bilirubin 0.00 Indirect Bilirubin 1.2 H Aspartate Amino 19 Transf (AST/SGOT) Alanine 17 Aminotransferase (ALT/SG PT) Alkaline Phosphatase 40 L Total Protein 7.0 # Albumin 3.7 Globulin 3.30 H Albumin/Globulin Ratio 1.12 Medications Medication Current Medications Ondansetron HCl (Zofran Inj) 4 mg BRIDGE ORDER PRN IV NAUSEA/VOMITING; Start 03/07/19 at 20:00; Stop 03/08/19 at 19:59 Piperacillin Sod/ Tazobactam Sod 100 ml @ 200 mls/hr Q6 IVPB Last administered on 03/08/19at 12:06; Admin Dose 200 MLS/HR; Start 03/08/19 at 00:00 Metoclopramide HCl (Reglan) 10 mg Q6H PRN IV NAUSEA AND/OR VOMITING; Start 03/07/19 at 23:30 Ondansetron HCl (Zofran Inj) 4 mg Q6H PRN IV NAUSEA AND/OR VOMITING; Start 03/07/19 at 23:30 Acetaminophen (Tylenol Tab) 650 mg Q6H PRN PO PAIN LEVEL 1-3 OR FEVER; Start 03/07/19 at 23:30 Ibuprofen (Motrin) 600 mg Q6H PRN PO PAIN LEVEL 1-3; Start 03/07/19 at 23:30 Ketorolac Tromethamine (Toradol) 30 mg Q6H PRN IV PAIN; Start 03/07/19 at 23:30; Stop 03/10/19 at 23:29 Hydromorphone HCl (Dilaudid) 0.5 mg Q4H PRN IV PAIN LEVEL 8-10 Last administered on 03/08/19at 15:05; Admin Dose 0.5 MG; Start 03/07/19 at 23:30 Acetaminophen/ Hydrocodone Bitart ([place] (5/325)) 1 tab Q6H PRN PO PAIN LEVEL 4-7; Start 03/07/19 at 23:30 Potassium Chloride/Dextrose/ Sod Cl 1,000 ml @ 100 mls/hr Q10H IV Last administered on 03/08/19at 14:56; Admin Dose 100 MLS/HR; Start 03/07/19 at 23:17 Diphenhydramine HCl (Benadryl) 25 mg Q6H PRN IV PRURITUS; Start 03/07/19 at 23:30 MARNI ANAYA MD Mar 08, 2019 16:31
[2019-03-08] MEDS: KETOROLAC 30 MG INJ IV PRN (18:10)
[2019-03-09] MEDS: PIPER-TAZO 3.375 GM IV (PMX) 100 ML IVPB SCH ×2 (00:21→06:01)
[2019-03-09] MEDS: HYDROmorphONE 0.5 MG/0.5 ML SYG IV PRN ×2 (00:25→06:01)
[2019-03-09] MEDS: D5W-0.45 NACL + KCL 20 MEQ 1,000 ML IV SCH ×3 (00:25→21:14)
[2019-03-09 02:30] VITALS: BP 122/69; PULSE 79; RESP 18
[2019-03-09 08:03] VITALS: BP 100/57; PULSE 88; RESP 18
[2019-03-09] MEDS: ENOXAPARIN 40 MG/0.4 ML SYG SC SCH (09:23)
--- NOTE | 2019-03-09 13:09 | PN ---
Date/Time of Note Date/Time of Note DATE: 03/09/19 TIME: 13:08 Assessment/Plan Lines/Catheters IV C[facility]ter Type (from [facility]): Peripheral IV Subjective 24 Hr Interval Summary Day 2 after laparoscopic appendectomy with acute gangrenous appendicitis. Patient is recovering, having bowel movement, however abdomen is still distended. His culture grows E. coli. Patient can be discharged home on appropriate oral antibiotics. Exam/Review of Systems Vital Signs Vitals Vital Signs Date Temp Pulse Resp B/P (MAP) Pulse Ox O2 O2 Flow FiO2 Time Delivery Rate 03/09/19 98.6 88 18 100/57 95 Room Air 08:03 (71) 03/08/19 2.0 09:19 Intake and Output 03/08/19 03/08/19 03/09/19 1515:00 23:00 07:00 IntakeIntake Total 1800 ml 820 ml 800 ml OutputOutput Total 500 ml BalanceBalance 1300 ml 820 ml 800 ml Results Result Diagram: 03/09/19 0514 03/09/19 0514 LUKE PRESTON MD Mar 09, 2019 13:09
--- NOTE | 2019-03-09 13:29 | CONS ---
DATE OF ADMISSION: 03/07/2019 DATE OF CONSULTATION: 03/09/2019 TYPE OF CONSULTATION: Infectious disease. REASON FOR CONSULTATION: Antibiotic management. HISTORY OF PRESENT ILLNESS: Sheldon Morin is a 58-year-old male who comes in with e pigastric pain of 1 day's duration. He presented on 03/07/2019 with abdominal pain that has been wor sening. He denies nausea, vomiting, fever or chills. He has no constipation or diarrhea. No melena . He had 1 bowel movement which was normal. PAST MEDICAL HISTORY: Operations: None. FAMILY HISTORY: Noncontributory. SOCIAL HISTORY: He does smoke. He does not drink or abuse drugs. ALLERGIES: NONE TO PENICILLIN, SULFA OR FOODS. MEDICATIONS: Per chart. REVIEW OF SYSTEMS: As per HPI. PHYSICAL EXAMINATION: GENERAL: The patient on admission was in some distress. ABDOMEN: Distended, rigid diffusely tender abdomen with peritoneal signs. Hypoactive bowel sounds. HOSPITAL COURSE: White count was 14.2 with 89% neutrophils, H and H 16.3/4.7, platelet count 269,000 . BUN and creatinine 18/1.08, glucose of 157. Patient was started in the Emergency Room on Zosyn. He had leukocytosis. CT scan of the abdomen and pelvis showed evidence of acute appendicitis with sm all-bowel obstruction. The patient was seen by Dr. Jeffrey Balderas, whose assessment was acute appendic itis, complicated by partial bowel obstruction. The patient is going to laparoscopic, possible open appendectomy, possible complications including but not limited to bleeding, infection, injury to othe r organs, anesthesia complications and so on. The abdomen was distended with marked right lower quad rant tenderness in the usual area up to the epigastrium. The patient had acute phlegmonous gangrenou s appendicitis, had a laparoscopic appendectomy. The appendix and abdominal fluid was sent. A 58-ye ar-old male with diffuse abdominal pain. White count 14,000. The acute appendicitis complicated wit h partial small-bowel obstruction, confirmed by CT scan. The appendix was found to be acutely inflam ed with phlegmon. The organisms grown were E. coli and Pseudomonas. The E. coli was sensitive to ce fepime and patient is currently on meropenem, changed from Zosyn today, so the patient had acute appe ndicitis status post appendectomy. Postoperative ileus. His white count on the 8th was 14.7. PHYSICAL EXAMINATION: GENERAL: He is a well-developed, well-nourished male who is lethargic, but arousable, no acute distr ess. VITAL SIGNS: Stable. He is afebrile. SKIN: Without generalized rash. HEENT: Within normal limits. NECK: Supple. LYMPH NODES: None palpable. CHEST: Decreased breath sounds at the bases. HEART: Without murmur or gallop. ABDOMEN: Soft, somewhat tender in the area of surgery. EXTREMITIES: Without cyanosis, clubbing, or edema. RECTAL AND GENITAL: Deferred. NEUROLOGICAL: Within normal limits. IMPRESSION AND PLAN: The patient had phlegmonous appendicitis. He had some fluid in the abdomen. H e grew out ESBL and Pseudomonas and is currently on meropenem, which should cover E. coli and Pseudom onas species, awaiting the identification and sensitivities of the pseudomonas. I will dictate my findings to the hospitalists and to Dr. Balderas. Dictated By: GALINDO ESTES MD, JD/JOSEPH Conf#: [id number] DID#: [id number] CC: NATALIE MENDOZA MD;*EndCC*
[2019-03-09] MEDS: MEROPENEM 1 GM/50ML(PMX) 50 ML IVPB SCH ×2 (13:47→21:11)
--- NOTE | 2019-03-09 14:48 | PN ---
Date/Time of Note Date/Time of Note DATE: 03/09/19 TIME: 14:44 Assessment/Plan VTE Prophylaxis Risk score (from [facility] [place])>0 risk: 5 SCD applied (from [facility] [place]): Yes Pharmacological prophylaxis: LMWH Lines/Catheters IV Catheter Type (from [place]): Peripheral IV Assessment/Plan Assessment/Plan 1. Acute appendicitis, s/p lap appendectomy on 03/07/2019, follow up with surgery, fluid culture positive with ESBL E. coli and pseudomonas, on meropenem and zosyn, ID consult 2. Post op ileus, Reglan, repeat KUB 3. DVT prophylaxis: lovenox Result Diagram: 03/09/19 0514 03/09/19 0514 Results 24hrs Laboratory Tests Test 03/09/19 05:14 White Blood Count 13.0 H Red Blood Count 4.73 Hemoglobin 13.8 L Hematocrit 40.4 L Mean Corpuscular Volume 85.4 Mean Corpuscular Hemoglobin 29.2 Mean Corpuscular Hemoglobin Concent 34.2 Red Cell Distribution Width 14.1 Platelet Count 218 Mean Platelet Volume 11.3 H Immature Granulocytes % 0.500 H Neutrophils % 88.0 H Lymphocytes % 6.8 L Monocytes % 4.2 Eosinophils % 0.2 Basophils % 0.3 Nucleated Red Blood Cells % 0.0 Immature Granulocytes # 0.060 H Neutrophils # 11.5 H Lymphocytes # 0.9 Monocytes # 0.6 Eosinophils # 0.0 Basophils # 0.0 Nucleated Red Blood Cells # 0.0 Sodium Level 140 Potassium Level 4.0 Chloride Level 109 Carbon Dioxide Level 23 Anion Gap 8 Blood Urea Nitrogen 19 Creatinine 1.17 Est Glomerular Filtrat Rate mL/min > 60 Glucose Level 151 Calcium Level 9.0 Magnesium Level 2.0 Subjective 24 Hr Interval Summary Free Text/Dictation abdominal distension. some liquid BMs Exam/Review of Systems Exam Vitals Vital Signs Date Temp Pulse Resp B/P (MAP) Pulse Ox O2 O2 Flow FiO2 Time Delivery Rate 03/09/19 98.6 88 18 100/57 95 Room Air 08:03 (71) 03/08/19 2.0 09:19 Intake and Output 03/08/19 03/08/19 03/09/19 1515:00 23:00 07:00 IntakeIntake Total 1800 ml 820 ml 800 ml OutputOutput Total 500 ml BalanceBalance 1300 ml 820 ml 800 ml Constitutional: alert, oriented, well developed Psych: no complaints, nl mood/affect Head: normocephalic, atraumatic Eyes: nl conjunctiva, EOMI, nl lids ENMT: nl external ears & nose, nl lips & teeth, nl nasal mucosa & septum Neck: supple, non-tender Respiratory: clear to auscultation, normal air movement; No congested cough, No crackles/rales, No diminished breath sounds, No intercostal retraction, No labored breathing, No respirations, No tactile fremi tus, No wheezing, No other Cardiovascular: regular rate and rhythm, nl pulses; No bruits, No diastolic murmur, No edema, No gallop, No irregular rhythm, No jugular venous distention (JVD), No murmurs/extra sounds, No rub, No systolic murmur, No S3, No S4, No other Gastrointestinal: nl liver, spleen, distended, other (hypoactive BS) Musculoskeletal: nl extremities to inspection Extremities: normal pulses; No calf tenderness, No cyanosis, No clubbing, No edema, No pitting pedal edema, No palpable cord, No tenderness, No other 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, nl mental status, nl speech Results Results 24hrs Laboratory Tests Test 03/09/19 05:14 White Blood Count 13.0 H Red Blood Count 4.73 Hemoglobin 13.8 L Hematocrit 40.4 L Mean Corpuscular Volume 85.4 Mean Corpuscular Hemoglobin 29.2 Mean Corpuscular Hemoglobin Concent 34.2 Red Cell Distribution Width 14.1 Platelet Count 218 Mean Platelet Volume 11.3 H Immature Granulocytes % 0.500 H Neutrophils % 88.0 H Lymphocytes % 6.8 L Monocytes % 4.2 Eosinophils % 0.2 Basophils % 0.3 Nucleated Red Blood Cells % 0.0 Immature Granulocytes # 0.060 H Neutrophils # 11.5 H Lymphocytes # 0.9 Monocytes # 0.6 Eosinophils # 0.0 Basophils # 0.0 Nucleated Red Blood Cells # 0.0 Sodium Level 140 Potassium Level 4.0 Chloride Level 109 Carbon Dioxide Level 23 Anion Gap 8 Blood Urea Nitrogen 19 Creatinine 1.17 Est Glomerular Filtrat Rate mL/min > 60 Glucose Level 151 Calcium Level 9.0 Magnesium Level 2.0 Medications Medication Current Medications Metoclopramide HCl (Reglan) 10 mg Q6H PRN IV NAUSEA AND/OR VOMITING; Start 03/07/19 at 23:30 Ondansetron HCl (Zofran Inj) 4 mg Q6H PRN IV NAUSEA AND/OR VOMITING; Start 03/07/19 at 23:30 Acetaminophen (Tylenol Tab) 650 mg Q6H PRN PO PAIN LEVEL 1-3 OR FEVER; Start 03/07/19 at 23:30 Ibuprofen (Motrin) 600 mg Q6H PRN PO PAIN LEVEL 1-3; Start 03/07/19 at 23:30 Ketorolac Tromethamine (Toradol) 30 mg Q6H PRN IV PAIN Last administered on 03/08/19at 18:10; Admin Dose 30 MG; Start 03/07/19 at 23:30; Stop 03/10/19 at 23:29 Hydromorphone HCl (Dilaudid) 0.5 mg Q4H PRN IV PAIN LEVEL 8-10 Last administered on 03/09/19at 06:01; Admin Dose 0.5 MG; Start 03/07/19 at 23:30 Acetaminophen/ Hydrocodone Bitart ([place] (5/325)) 1 tab Q6H PRN PO PAIN LEVEL 4-7; Start 03/07/19 at 23:30 Potassium Chloride/Dextrose/ Sod Cl 1,000 ml @ 100 mls/hr Q10H IV Last administered on 03/09/19at 00:25; Admin Dose 100 MLS/HR; Start 03/07/19 at 23:17 Diphenhydramine HCl (Benadryl) 25 mg Q6H PRN IV PRURITUS; Start 03/07/19 at 23:30 Enoxaparin Sodium (Lovenox) 40 mg DAILY SC Last administered on 03/09/19at 09:23; Admin Dose 40 MG; Start 03/09/19 at 09:00 Simethicone (Mylicon) 80 mg Q6H PRN PO DISTENSION/GAS/BLOATING Last administered on 03/09/19at 06:00; Admin Dose 80 MG; Start 03/08/19 at 20:00 Meropenem/Sodium Chloride 50 ml @ 100 mls/hr Q8 IVPB Last administered on 03/09/19at 13:47; Admin Dose 100 MLS/HR; Start 03/09/19 at 14:00 MARNI ANAYA MD Mar 09, 2019 14:48
[2019-03-09] MEDS ORDERED: PIPER-TAZO 3.375 GM IV (PMX) 100 ML IVPB SCH (15:00)
[2019-03-09 15:34] VITALS: BP 135/80; PULSE 91; RESP 17
[2019-03-09] MEDS: HYDROCODONE/APAP (5/325) TAB PO PRN (15:47)
[2019-03-09] MEDS: METOCLOPRAMIDE 10 MG INJ IV SCH (17:47)
[2019-03-09 20:00] VITALS: BP 118/71; PULSE 85; RESP 19
[2019-03-09 21:42] VITALS: BP 118/71; PULSE 85; RESP 18
[2019-03-10] MEDS: HYDROCODONE/APAP (5/325) TAB PO PRN (00:28)
[2019-03-10] MEDS: METOCLOPRAMIDE 10 MG INJ IV SCH ×5 (00:30→23:06)
[2019-03-10 02:01] VITALS: BP 134/81; PULSE 74; RESP 18
[2019-03-10] MEDS: MEROPENEM 1 GM/50ML(PMX) 50 ML IVPB SCH ×3 (05:53→21:40)
[2019-03-10 08:08] VITALS: BP 116/73; PULSE 81; RESP 19
[2019-03-10] MEDS: D5W-0.45 NACL + KCL 20 MEQ 1,000 ML IV SCH ×2 (08:20→21:17)
[2019-03-10] MEDS: ENOXAPARIN 40 MG/0.4 ML SYG SC SCH (08:36)
[2019-03-10] MEDS: KETOROLAC 30 MG INJ IV PRN (10:20)
--- NOTE | 2019-03-10 14:16 | CONS ---
Assessment/Plan Assessment/Plan Hospital Course (Demo Recall) Patient is awake looks comfortable spiking fevers with a T-max last night 101.1 he had been having diarrhea's. Intraoperative cultures grew Pseudomonas strep E. coli ESBL Antimicrobials: Patient is on meropenem Physical examination: This is well-developed well-nourished middle-aged man who is alert in no distress. Head atraumatic normocephalic sclera nonicteric vehicle mucosa dry neck is supple chest rise symmetrical breath sounds diminished bases heart S1-S2 abdomen distended, soft bowel sounds present extremities without cyanosis Assessment: 1. Acute gangrenous appendicitis with microperforation, status post laparoscopic appendectomy 03/07/19 2. Diarrhea, rule out C. difficile 3. Ongoing fevers Plan: Patient is clinically stable, we will send stool for C. difficile, add empiric Flagyl, if fevers persist consider repeat CT of the abdomen Consultation Date/Type/Reason Admit Date/Time Mar 07, 2019 at 19:43 Initial Consult Date 03/07/19 Type of Consult id Date/Time of Note DATE: 03/10/19 TIME: 14:16 Exam/Review of Systems Exam Vitals Vital Signs Date Temp Pulse Resp B/P (MAP) Pulse Ox O2 O2 Flow FiO2 Time Delivery Rate 03/10/19 97.8 81 19 116/73 99 08:08 (87) 03/10/19 Nasal 2.0 08:00 Cannula Intake and Output 03/09/19 03/09/19 03/10/19 1414:59 22:59 06:59 IntakeIntake Total 290 ml 440 ml BalanceBalance 290 ml 440 ml Results Result Diagram: 03/10/19 0538 03/10/19 0538 Results 24hrs Laboratory Tests Test 03/10/19 05:38 White Blood Count 11.2 H Red Blood Count 4.90 Hemoglobin 14.3 Hematocrit 41.8 L Mean Corpuscular Volume 85.3 Mean Corpuscular Hemoglobin 29.2 Mean Corpuscular Hemoglobin Concent 34.2 Red Cell Distribution Width 14.1 Platelet Count 229 Mean Platelet Volume 10.9 H Immature Granulocytes % 0.500 H Neutrophils % 83.8 H Lymphocytes % 8.5 L Monocytes % 5.8 Eosinophils % 1.0 Basophils % 0.4 Nucleated Red Blood Cells % 0.0 Immature Granulocytes # 0.060 H Neutrophils # 9.4 H Lymphocytes # 1.0 Monocytes # 0.7 Eosinophils # 0.1 Basophils # 0.1 Nucleated Red Blood Cells # 0.0 Sodium Level 139 Potassium Level 4.0 Chloride Level 110 Carbon Dioxide Level 20 L Anion Gap 9 Blood Urea Nitrogen 19 Creatinine 0.88 Est Glomerular Filtrat Rate mL/min > 60 Glucose Level 141 Calcium Level 8.9 Phosphorus Level 2.8 Magnesium Level 2.0 Medications Medication Current Medications Ondansetron HCl (Zofran Inj) 4 mg Q6H PRN IV NAUSEA AND/OR VOMITING; Start 03/07/19 at 23:30 Acetaminophen (Tylenol Tab) 650 mg Q6H PRN PO PAIN LEVEL 1-3 OR FEVER Last administered on 03/10/19at 01:56; Admin Dose 650 MG; Start 03/07/19 at 23:30 Ibuprofen (Motrin) 600 mg Q6H PRN PO PAIN LEVEL 1-3; Start 03/07/19 at 23:30 Ketorolac Tromethamine (Toradol) 30 mg Q6H PRN IV PAIN Last administered on 03/10/19at 10:20; Admin Dose 30 MG; Start 03/07/19 at 23:30; Stop 03/10/19 at 23:29 Hydromorphone HCl (Dilaudid) 0.5 mg Q4H PRN IV PAIN LEVEL 8-10 Last administered on 03/09/19at 06:01; Admin Dose 0.5 MG; Start 03/07/19 at 23:30 Acetaminophen/ Hydrocodone Bitart ([place] (5/325)) 1 tab Q6H PRN PO PAIN LEVEL 4-7 Last administered on 03/10/19at 00:28; Admin Dose 1 TAB; Start 03/07/19 at 23:30 Potassium Chloride/Dextrose/ Sod Cl 1,000 ml @ 100 mls/hr Q10H IV Last administered on 03/10/19at 08:20; Admin Dose 100 MLS/HR; Start 03/07/19 at 23:17 Diphenhydramine HCl (Benadryl) 25 mg Q6H PRN IV PRURITUS; Start 03/07/19 at 23:3 0 Enoxaparin Sodium (Lovenox) 40 mg DAILY SC Last administered on 03/10/19at 08:36; Admin Dose 40 MG; Start 03/09/19 at 09:00 Simethicone (Mylicon) 80 mg Q6H PRN PO DISTENSION/GAS/BLOATING Last admini stered on 03/09/19at 17:48; Admin Dose 80 MG; Start 03/08/19 at 20:00 Meropenem/Sodium Chloride 50 ml @ 100 mls/hr Q8 IVPB Last administered on 03/10/19at 05:53; Admin Dose 100 MLS/HR; Start 03/09/19 at 14:00 Metoclopramide HCl (Reglan) 5 mg Q6 IV Last administered on 03/10/19at 13:27; Admin Dose 5 MG; Start 03/09/19 at 18:00 GABRIELA FERNANDEZ NP Mar 10, 2019 14:16
--- NOTE | 2019-03-10 14:46 | PN ---
Date/Time of Note Date/Time of Note DATE: 03/10/19 TIME: 14:41 Assessment/Plan VTE Prophylaxis Risk score (from [facility])>0 risk: 3 SCD applied (from [facility]): Yes Pharmacological prophylaxis: LMWH Lines/Catheters IV Catheter Type (from [facility]): Peripheral IV Assessment/Plan Assessment/Plan 1. Acute appendicitis, s/p lap appendectomy on 03/07/2019, follow up with surgery, fluid culture positive with multiple bacteria including ESBL E. coli, on meropenem, follow up with ID 2. Post op ileus, Reglan, repeat KUB 3. DVT prophylaxis: lovenox Result Diagram: 03/10/1938 03/10/1938 Results 24hrs Laboratory Tests Test 03/10/19 05:38 White Blood Count 11.2 H Red Blood Count 4.90 Hemoglobin 14.3 Hematocrit 41.8 L Mean Corpuscular Volume 85.3 Mean Corpuscular Hemoglobin 29.2 Mean Corpuscular Hemoglobin Concent 34.2 Red Cell Distribution Width 14.1 Platelet Count 229 Mean Platelet Volume 10.9 H Immature Granulocytes % 0.500 H Neutrophils % 83.8 H Lymphocytes % 8.5 L Monocytes % 5.8 Eosinophils % 1.0 Basophils % 0.4 Nucleated Red Blood Cells % 0.0 Immature Granulocytes # 0.060 H Neutrophils # 9.4 H Lymphocytes # 1.0 Monocytes # 0.7 Eosinophils # 0.1 Basophils # 0.1 Nucleated Red Blood Cells # 0.0 Sodium Level 139 Potassium Level 4.0 Chloride Level 110 Carbon Dioxide Level 20 L Anion Gap 9 Blood Urea Nitrogen 19 Creatinine 0.88 Est Glomerular Filtrat Rate mL/min > 60 Glucose Level 141 Calcium Level 8.9 Phosphorus Level 2.8 Magnesium Level 2.0 Subjective 24 Hr Interval Summary Free Text/Dictation abdominal pain Exam/Review of Systems Exam Vitals Vital Signs Date Temp Pulse Resp B/P (MAP) Pulse Ox O2 O2 Flow FiO2 Time Delivery Rate 03/10/19 97.8 81 19 116/73 99 08:08 (87) 03/10/19 Nasal 2.0 08:00 Cannula Intake and Output 03/09/19 03/09/19 03/10/19 1515:00 23:00 07:00 IntakeIntake Total 290 ml 440 ml BalanceBalance 290 ml 440 ml Constitutional: alert, oriented, well developed Psych: no complaints, nl mood/affect Head: normocephalic, atraumatic Eyes: nl conjunctiva, EOMI, nl lids ENMT: nl external ears & nose, nl lips & teeth, nl nasal mucosa & septum Neck: supple, non-tender Respiratory: clear to auscultation, normal air movement; No congested cough, No crackles/rales, No diminished breath sounds, No intercostal retraction, No labored breathing, No respirations, No tactile fremitus, No wheezing, No other Cardiovascular: regular rate and rhythm, nl pulses; No bruits, No diastolic murmur, No edema, No gallop, No irregular rhythm, No jugular venous distention (JVD), No murmurs/extra sounds, No rub, No systolic murmur, No S3, No S4, No other Gastrointestinal: soft, nl liver, spleen, non-tender; No ascites, No bowel sounds, No distended, No firm, No hepatomegaly, No mass, No rebound or guarding, No splenomegaly, No surgical scars, No tender, No other Musculoskeletal: nl extremities to inspection Extremities: normal pulses; No calf tenderness, No cyanosis, No clubbing, No edema, No pitting pedal edema, No palpable cord, No tenderness, No other 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, nl mental status, nl speech, nl strength Skin: nl turgor Results Results 24hrs Laboratory Tests Test 03/10/19 05:38 White Blood Count 11.2 H Red Blood Count 4.90 Hemoglobin 14.3 Hematocrit 41.8 L Mean Corpuscular Volume 85.3 Mean Corpuscular Hemoglobin 29.2 Mean Corpuscular Hemoglobin Concent 34.2 Red Cell Distribution Width 14.1 Platelet Count 229 Mean Platelet Volume 10.9 H Immature Granulocytes % 0.500 H Neutrophils % 83.8 H Lymphocytes % 8.5 L Monocytes % 5.8 Eosinophils % 1.0 Basophils % 0.4 Nucleated Red Blood Cells % 0.0 Immature Granulocytes # 0.060 H Neutrophils # 9.4 H Lymphocytes # 1.0 Monocytes # 0.7 Eosinophils # 0.1 Basophils # 0.1 Nucleated Red Blood Cells # 0.0 Sodium Level 139 Potassium Level 4.0 Chloride Level 110 Carbon Dioxide Level 20 L Anion Gap 9 Blood Urea Nitrogen 19 Creatinine 0.88 Est Glomerular Filtrat Rate mL/min > 60 Glucose Level 141 Calcium Level 8.9 Phosphorus Level 2.8 Magnesium Level 2.0 Medications Medication Current Medications Ondansetron HCl (Zofran Inj) 4 mg Q6H PRN IV NAUSEA AND/OR VOMITING; Start 03/07/19 at 23:30 Acetaminophen (Tylenol Tab) 650 mg Q6H PRN PO PAIN LEVEL 1-3 OR FEVER Last administered on 03/10/19at 01:56; Admin Dose 650 MG; Start 03/07/19 at 23:30 Ibuprofen (Motrin) 600 mg Q6H PRN PO PAIN LEVEL 1-3; Start 03/07/19 at 23:30 Ketorolac Tromethamine (Toradol) 30 mg Q6H PRN IV PAIN Last administered on 03/10/19at 10:20; Admin Dose 30 MG; Start 03/07/19 at 23:30; Stop 03/10/19 at 23:29 Hydromorphone HCl (Dilaudid) 0.5 mg Q4H PRN IV PAIN LEVEL 8-10 Last administered on 03/09/19at 06:01; Admin Dose 0.5 MG; Start 03/07/19 at 23:30 Acetaminophen/ Hydrocodone Bitart ([place] (5/325)) 1 tab Q6H PRN PO PAIN LEVEL 4-7 Last administered on 03/10/19at 00:28; Admin Dose 1 TAB; Start 03/07/19 at 23:30 Potassium Chloride/Dextrose/ Sod Cl 1,000 ml @ 100 mls/hr Q10H IV Last administered on 03/10/19at 08:20; Admin Dose 100 MLS/HR; Start 03/07/19 at 23:17 Diphenhydramine HCl (Benadryl) 25 mg Q6H PRN IV PRURITUS; Start 03/07/19 at 23:30 Enoxaparin Sodium (Lovenox) 40 mg DAILY SC Last administered on 03/10/19at 08:36; Admin Dose 40 MG; Start 03/09/19 at 09:00 Simethicone (Mylicon) 80 mg Q6H PRN PO DISTENSION/GAS/BLOATING Last administered on 03/09/19at 17:48; Admin Dose 80 MG; Start 03/08/19 at 20:00 Meropenem/Sodium Chloride 50 ml @ 100 mls/hr Q8 IVPB Last administered on 03/10/19at 14:29; Admin Dose 100 MLS/HR; Start 03/09/19 at 14:00 Metoclopramide HCl (Reglan) 5 mg Q6 IV Last administered on 03/10/19at 13:27; Admin Dose 5 MG; Start 03/09/19 at 18:00 Metronidazole 100 ml @ 100 mls/hr Q8 IVPB ; Start 03/10/19 at 14:30 MARNI ANAYA MD Mar 10, 2019 14:46
[2019-03-10 15:21] VITALS: BP 121/63; PULSE 77; RESP 17
[2019-03-10] MEDS: metroNIDAZOLE 500 MG/NS (PMX) 100 ML IVPB SCH ×2 (16:01→22:57)
--- NOTE | 2019-03-10 16:33 | RADRPT ---
Vent Rate: 80 bpm RR Interval: 752 msec AR Interval: 131 msec QRS Duration: 85 msec QT Interval: 377 msec QTC Interval: 435 msec P-R-T [place]: 35 - 30 - 27 degrees Sinus rhythm...normal P axis, V-rate 50- 99 Multiple ventricular premature complexes...V complexes w/ short R-R intervls Electronically Signed By: Levy Mcmahon
--- NOTE | 2019-03-10 16:36 | RADRPT ---
Vent Rate: 61 bpm RR Interval: 988 msec [place] Interval: 147 msec QRS Duration: 82 msec QT Interval: 405 msec QTC Interval: 407 msec P-R-T [place]: 52 - 33 - 28 degrees Sinus rhythm...normal P axis, V-rate 50- 99 Probable left atrial enlargement...P >50mS, <-0.10mV V1 Electronically Signed By: Levy Mcmahon
--- NOTE | 2019-03-10 17:08 | PN ---
Date/Time of Note Date/Time of Note DATE: 03/10/19 TIME: 17:07 Assessment/Plan Lines/Catheters IV Catheter Type (from [facility]): Peripheral IV Assessment/Plan Assessment/Plan Status post laparoscopic appendectomy for perforated gangrenous appendicitis with local peritonitis. Paralytic ileus slowly resolving. Advance diet slowly. Subjective 24 Hr Interval Summary Patient is still distended, however tolerate liquids. Still have bowel movements and passing gas. On exam abdomen is tympanic but soft and not tender. X-ray showed less bowel distention. Exam/Review of Systems Vital Signs Vitals Vital Signs Date Temp Pulse Resp B/P (MAP) Pulse Ox O2 O2 Flow FiO2 Time Delivery Rate 03/10/19 99.0 77 17 121/63 96 15:21 (82) 03/10/19 Nasal 2.0 08:00 Cannula Intake and Output 03/09/19 03/09/19 03/10/19 1414:59 22:59 06:59 IntakeIntake Total 290 ml 440 ml BalanceBalance 290 ml 440 ml Results Result Diagram: 03/10/19 0538 03/10/19 0538 LUKE PRESTON MD Mar 10, 2019 17:08
[2019-03-10] MEDS: HYDROmorphONE 0.5 MG/0.5 ML SYG IV PRN (18:22)
[2019-03-10 20:49] VITALS: BP 138/63; PULSE 79; RESP 18
[2019-03-11 01:23] VITALS: BP 144/69; PULSE 62; RESP 18
[2019-03-11] MEDS: D5W-0.45 NACL + KCL 20 MEQ 1,000 ML IV SCH ×4 (03:17→19:26)
[2019-03-11] MEDS: MEROPENEM 1 GM/50ML(PMX) 50 ML IVPB SCH ×3 (05:28→21:32)
[2019-03-11] MEDS: METOCLOPRAMIDE 10 MG INJ IV SCH ×2 (05:45→12:10)
[2019-03-11] MEDS: metroNIDAZOLE 500 MG/NS (PMX) 100 ML IVPB SCH (06:03)
[2019-03-11 07:33] VITALS: BP 112/71; PULSE 68; RESP 18
[2019-03-11] MEDS: ENOXAPARIN 40 MG/0.4 ML SYG SC SCH (08:48)
--- NOTE | 2019-03-11 13:05 | PN ---
Date/Time of Note Date/Time of Note DATE: 03/11/19 TIME: 13:02 Assessment/Plan VTE Prophylaxis Risk score (from [facility])>0 risk: 3 SCD applied (from [facility] [place]): Yes Pharmacological prophylaxis: LMWH Lines/Catheters IV [facility] ([facility] [place] Assessment/Plan Assessment/Plan 1. Acute perforated gangrenous appendicitis with local peritonitis, s/p lap appendectomy on 03/07/2019, fluid culture positive with multiple bacteria including ESBL E. coli, on meropenem, needs at least one week of meropenem per ID 2. Post op ileus, follow up with surgery 3. DVT prophylaxis: lovenox Result Diagram: 03/10/19 0538 03/11/19 0529 Results 24hrs Laboratory Tests Test 03/11/19 05:29 Sodium Level 140 Potassium Level 4.1 Chloride Level 108 Carbon Dioxide Level 20 L Anion Gap 12 Blood Urea Nitrogen 21 H Creatinine 0.95 Est Glomerular Filtrat Rate mL/min > 60 Glucose Level 142 Calcium Level 9.2 Magnesium Level 2.1 Subjective 24 Hr Interval Summary Free Text/Dictation less distension on abdomen. No nausea or vomiting, multiple BMs Exam/Review of Systems Exam Vitals Vital Signs Date Temp Pulse Resp B/P (MAP) Pulse Ox O2 O2 Flow FiO2 Time Delivery Rate 03/11/19 98.8 68 18 112/71 97 Room Air 07:33 (85) 03/10/19 2.0 08:00 Intake and Output 03/10/19 03/10/19 03/11/19 1515:00 23:00 07:00 IntakeIntake Total 1040 ml 1190 ml 950 ml BalanceBalance 1040 ml 1190 ml 950 ml Constitutional: alert, oriented, well developed Psych: no complaints, nl mood/affect Head: normocephalic, atraumatic Eyes: nl conjunctiva, EOMI, nl lids ENMT: nl external ears & nose, nl lips & teeth, nl nasal mucosa & septum Neck: supple, non-tender Respiratory: clear to auscultation, normal air movement; No congested cough, No crackles/rales, No diminished breath sounds, No intercostal retraction, No labored breathing, No respirations, No tactile fremitus, No wheezing, No other Cardiovascular: regular rate and rhythm, nl pulses; No bruits, No diastolic murmur, No edema, No gallop, No irregular rhythm, No jugular venous distention (JVD), No murmurs/extra sounds, No rub, No systolic murmur, No S3, No S4, No other Gastrointestinal: nl liver, spleen, bowel sounds, distended, tender Musculoskeletal: nl extremities to inspection Extremities: normal pulses; No calf tenderness, No cyanosis, No clubbing, No edema, No pitting pedal edema, No palpable cord, No tenderness, No other 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, nl mental status, nl speech, nl strength Skin: nl turgor Results Results 24hrs Laboratory Tests Test 03/11/19 05:29 Sodium Level 140 Potassium Level 4.1 Chloride Level 108 Carbon Dioxide Level 20 L Anion Gap 12 Blood Urea Nitrogen 21 H Creatinine 0.95 Est Glomerular Filtrat Rate mL/min > 60 Glucose Level 142 Calcium Level 9.2 Magnesium Level 2.1 Medications Medication Current Medications Ondansetron HCl (Zofran Inj) 4 mg Q6H PRN IV NAUSEA AND/OR VOMITING Last administered on 03/10/19 20:33; Admin Dose 4 MG; Start 03/07/19 at 23:30 Acetaminophen (Tylenol Tab) 650 mg Q6H PRN PO PAIN LEVEL 1-3 OR FEVER Last administered on 03/10/19 01:56; Admin Dose 650 MG; Start 03/07/19 at 23:30 Ibuprofen (Motrin) 600 mg Q6H PRN PO PAIN LEVEL 1-3; Start 03/07/19 at 23:30 Hydromorphone HCl (Dilaudid) 0.5 mg Q4H PRN IV PAIN LEVEL 8-10 Last administered on 03/10/19at 18:22; Admin Dose 0.5 MG; Start 03/07/19 at 23:30 Acetaminophen/ Hydrocodone Bitart ([place] (5/325)) 1 tab Q6H PRN PO PAIN LEVEL 4-7 Last administered on 03/10/19at 00:28; Admin Dose 1 TAB; Start 03/07/19 at 23:30 Potassium Chloride/Dextrose/ Sod Cl 1,000 ml @ 100 mls/hr Q10H IV Last administered on 03/11/19at 03:17; Admin Dose 100 MLS/HR; Start 03/07/19 at 23:17 Diphenhydramine HCl (Benadryl) 25 mg Q6H PRN IV PRURITUS; Start 03/07/19 at 23:30 Enoxaparin Sodium (Lovenox) 40 mg DAILY SC Last administered on 03/11/19at 08:48; Admin Dose 40 MG; Start 03/09/19 at 09:00 Simethicone (Mylicon) 80 mg Q6H PRN PO DISTENSION/GAS/BLOATING Last administered on 03/09/19at 17:48; Admin Dose 80 MG; Start 03/08/19 at 20:00 Meropenem/Sodium Chloride 50 ml @ 100 mls/hr Q8 IVPB Last administered on 03/11/19 05:28; Admin Dose 100 MLS/HR; Start 03/09/19 at 14:00 Metoclopramide HCl (Reglan) 5 mg Q6 IV Last administered on 03/11/19at 12:10; Admin Dose 5 MG; Start 03/09/19 at 18:00 Metronidazole 100 ml @ 100 mls/hr Q8 IVPB Last administered on 03/11/19at 06:03; Admin Dose 100 MLS/HR; Start 03/10/19 at 14:30 MARNI ANAYA MD Mar 11, 2019 13:04
[2019-03-11] MEDS ORDERED: METOCLOPRAMIDE 10 MG INJ IV PRN (13:30)
--- NOTE | 2019-03-11 14:05 | CONS ---
Assessment/Plan Assessment/Plan Hospital Course (Demo Recall) Patient is awake looks comfortable complaining of abdominal discomfort and loose stools, no fevers overnight KUB this morning revealed worsening ileus versus small bowel obstruction Antimicrobials: Flagyl, meropenem Physical examination: This is well-developed well-nourished middle-aged man who is alert in no distress. Head atraumatic normocephalic sclera nonicteric vehicle mucosa dry neck is supple chest rise symmetrical breath sounds diminished bases heart S1-S2 abdomen distended, soft bowel sounds present extremities without cyanosis Assessment: 1. Acute gangrenous appendicitis with microperforation, status post laparoscopic appendectomy 03/07/19 2. Diarrhea, rule out C. difficile 3. Postop ileus, questionable obstruction Plan: Patient is clinically stable, continue present care antibiotics, discontinue Flagyl, consider to change diet to clear or n.p.o. Consultation Date/Type/Reason Admit Date/Time Mar 07, 2019 at 19:43 Initial Consult Date 03/07/19 Type of Consult id Date/Time of Note DATE: 03/11/19 TIME: 14:03 Exam/Review of Systems Exam Vitals Vital Signs Date Temp Pulse Resp B/P (MAP) Pulse Ox O2 O2 Flow FiO2 Time Delivery Rate 03/11/19 98.8 68 18 112/71 97 Room Air 07:33 (85) 03/10/19 2.0 08:00 Intake and Output 03/10/19 03/10/19 03/11/19 1515:00 23:00 07:00 IntakeIntake Total 1040 ml 1190 ml 950 ml BalanceBalance 1040 ml 1190 ml 950 ml Results Result Diagram: 03/10/19 0538 03/11/19 0529 Results 24hrs Laboratory Tests Test 03/11/19 05:29 Sodium Level 140 Potassium Level 4.1 Chloride Level 108 Carbon Dioxide Level 20 L Anion Gap 12 Blood Urea Nitrogen 21 H Creatinine 0.95 Est Glomerular Filtrat Rate mL/min > 60 Glucose Level 142 Calcium Level 9.2 Magnesium Level 2.1 Medications Medication Current Medications Ondansetron HCl (Zofran Inj) 4 mg Q6H PRN IV NAUSEA AND/OR VOMITING Last administered on 03/10/19at 20:33; Admin Dose 4 MG; Start 03/07/19 at 23:30 Acetaminophen (Tylenol Tab) 650 mg Q6H PRN PO PAIN LEVEL 1-3 OR FEVER Last administered on 03/10/19 01:56; Admin Dose 650 MG; Start 03/07/19 at 23:30 Ibuprofen (Motrin) 600 mg Q6H PRN PO PAIN LEVEL 1-3; Start 03/07/19 at 23:30 Hydromorphone HCl (Dilaudid) 0.5 mg Q4H PRN IV PAIN LEVEL 8-10 Last administered on 03/10/19 18:22; Admin Dose 0.5 MG; Start 03/07/19 at 23:30 Acetaminophen/ Hydrocodone Bitart ([place] (5/325)) 1 tab Q6H PRN PO PAIN LEVEL 4-7 Last administered on 03/10/19 00:28; Admin Dose 1 TAB; Start 03/07/19 at 23:30 Potassium Chloride/Dextrose/ Sod Cl 1,000 ml @ 100 mls/hr Q10H IV Last administered on 03/11/19 03:17; Admin Dose 100 MLS/HR; Start 03/07/19 at 23:17 Diphenhydramine HCl (Benadryl) 25 mg Q6H PRN IV PRURITUS; Start 03/07/19 at 23:30 Enoxaparin Sodium (Lovenox) 40 mg DAILY SC Last administered on 03/11/19 08:48; Admin Dose 40 MG; Start 03/09/19 at 09:00 Simethicone (Mylicon) 80 mg Q6H PRN PO DISTENSION/GAS/BLOATING Last administered on 03/09/19 17:48; Admin Dose 80 MG; Start 03/08/19 at 20:00 Meropenem/Sodium Chloride 50 ml @ 100 mls/hr Q8 IVPB Last administered on 03/11/19 05:28; Admin Dose 100 MLS/HR; Start 03/09/19 at 14:00 Metronidazole 100 ml @ 100 mls/hr Q8 IVPB Last administered on 03/11/19 06:03; Admin Dose 100 MLS/HR; Start 03/10/19 at 14:30 Metoclopramide HCl (Reglan) 5 mg Q6H PRN IV nausea, vomiting; Start 03/11/19 at 13:30 GABRIELA FERNANDEZ NP Mar 11, 2019 14:05
[2019-03-11 14:50] VITALS: BP 139/83; PULSE 73; RESP 18
[2019-03-11 19:53] VITALS: BP 122/74; PULSE 74; RESP 19
[2019-03-12 02:02] VITALS: BP 114/82; PULSE 69; RESP 18
[2019-03-12] MEDS: MEROPENEM 1 GM/50ML(PMX) 50 ML IVPB SCH ×3 (05:11→22:04)
[2019-03-12] MEDS: D5W-0.45 NACL + KCL 20 MEQ 1,000 ML IV SCH ×2 (05:12→22:02)
[2019-03-12 07:30] VITALS: BP 128/64; PULSE 70; RESP 18
[2019-03-12] MEDS: ENOXAPARIN 40 MG/0.4 ML SYG SC SCH (08:16)
--- NOTE | 2019-03-12 11:31 | PN ---
Date/Time of Note Date/Time of Note DATE: 03/12/19 TIME: 11:27 Assessment/Plan VTE Prophylaxis Risk score (from [facility] [place])>0 risk: 2 SCD applied (from Ns): Yes Pharmacological prophylaxis: LMWH Lines/Catheters IV Catheter Type (from [facility]): Peripheral IV Assessment/Plan Assessment/Plan 1. Acute perforated gangrenous appendicitis with local peritonitis, s/p lap appendectomy on 03/07/2019, fluid culture positive with multiple bacteria including ESBL E. coli, on meropenem, needs at least one week of meropenem per ID 2. Post op ileus, follow up with surgery, repeat KUB 3. DVT prophylaxis: lovenox Result Diagram: 03/12/1945803/12/19458 Results 24hrs Laboratory Tests Test 03/12/19 04:59 White Blood Count 8.9 # Red Blood Count 5.16 Hemoglobin 14.9 Hematocrit 43.4 Mean Corpuscular Volume 84.1 Mean Corpuscular Hemoglobin 28.9 L Mean Corpuscular Hemoglobin Concent 34.3 Red Cell Distribution Width 13.5 Platelet Count 305 # Mean Platelet Volume 10.6 H Immature Granulocytes % 0.600 H Neutrophils % 80.9 H Lymphocytes % 9.9 L Monocytes % 6.8 Eosinophils % 1.2 Basophils % 0.6 Nucleated Red Blood Cells % 0.0 Immature Granulocytes # 0.050 H Neutrophils # 7.2 Lymphocytes # 0.9 Monocytes # 0.6 Eosinophils # 0.1 Basophils # 0.1 Nucleated Red Blood Cells # 0.0 Sodium Level 137 Potassium Level 3.9 Chloride Level 107 Carbon Dioxide Level 20 L Anion Gap 10 Blood Urea Nitrogen 23 H Creatinine 0.89 Est Glomerular Filtrat Rate mL/min > 60 Glucose Level 143 Calcium Level 9.5 Magnesium Level 2.1 Subjective 24 Hr Interval Summary Free Text/Dictation diarrhea. abdominal distension Exam/Review of Systems Exam Vitals Vital Signs Date Temp Pulse Resp B/P (MAP) Pulse Ox O2 O2 Flow FiO2 Time Delivery Rate 03/12/19 98.6 70 18 128/64 95 Room Air 07:30 (85) 03/10/19 2.0 08:00 Intake and Output 03/11/19 03/11/19 03/12/19 1515:00 23:00 07:00 IntakeIntake Total 460 ml 1582 ml 1050 ml BalanceBalance 460 ml 1582 ml 1050 ml Constitutional: alert, oriented, well developed Psych: no complaints, nl mood/affect Head: normocephalic, atraumatic Eyes: nl conjunctiva, EOMI, nl lids ENMT: nl external ears & nose, nl lips & teeth, nl nasal mucosa & septum Neck: supple, non-tender Respiratory: clear to auscultation, normal air movement; No congested cough, No crackles/rales, No diminished breath sounds, No intercostal retraction, No labored breathing, No respirations, No tactile fremitus, No wheezing, No other Cardiovascular: regular rate and rhythm, nl pulses; No bruits, No diastolic murmur, No edema, No gallop, No irregular rhythm, No jugular venous distention (JVD), No murmurs/extra sounds, No rub, No systolic murmur, No S3, No S4, No other Gastrointestinal: bowel sounds, distended Extremities: normal pulses; No calf tenderness, No cyanosis, No clubbing, No edema, No pitting pedal edema, No palpable cord, No tenderness, No other Neurological: PUNCH HAND II-XII intact, nl mental status, nl speech, nl strength Results Results 24hrs Laboratory Tests Test 03/12/19 04:59 White Blood Count 8.9 # Red Blood Count 5.16 Hemoglobin 14.9 Hematocrit 43.4 Mean Corpuscular Volume 84.1 Mean Corpuscular Hemoglobin 28.9 L Mean Corpuscular Hemoglobin Concent 34.3 Red Cell Distribution Width 13.5 Platelet Count 305 # Mean Platelet Volume 10.6 H Immature Granulocytes % 0.600 H Neutrophils % 80.9 H Lymphocytes % 9.9 L Monocytes % 6.8 Eosinophils % 1.2 Basophils % 0.6 Nucleated Red Blood Cells % 0.0 Immature Granulocytes # 0.050 H Neutrophils # 7.2 Lymphocytes # 0.9 Monocytes # 0.6 Eosinophils # 0.1 Basophils # 0.1 Nucleated Red Blood Cells # 0.0 Sodium Level 137 Potassium Level 3.9 Chloride Level 107 Carbon Dioxide Level 20 L Anion Gap 10 Blood Urea Nitrogen 23 H Creatinine 0.89 Est Glomerular Filtrat Rate mL/min > 60 Glucose Level 143 Calcium Level 9.5 Magnesium Level 2.1 Medications Medication Current Medications Ondansetron HCl (Zofran Inj) 4 mg Q6H PRN IV NAUSEA AND/OR VOMITING Last ad ministered on 03/10/19 20:33; Admin Dose 4 MG; Start 03/07/19 at 23:30 Acetaminophen (Tylenol Tab) 650 mg Q6H PRN PO PAIN LEVEL 1-3 OR FEVER Last administered on 03/10/19 01:56; Admin Dose 650 MG; Start 03/07/19 at 23:30 Ibuprofen (Motrin) 600 mg Q6H PRN PO PAIN LEVEL 1-3; Start 03/07/19 at 23:30 Hydromorphone HCl (Dilaudid) 0.5 mg Q4H PRN IV PAIN LEVEL 8-10 Last administered on 03/10/19 18:22; Admin Dose 0.5 MG; Start 03/07/19 at 23:30 Acetaminophen/ Hydrocodone Bitart ([place] (5/325)) 1 tab Q6H PRN PO PAIN LEVEL 4-7 Last administered on 03/10/19 00:28; Admin Dose 1 TAB; Start 03/07/19 at 2 3:30 Potassium Chloride/Dextrose/ Sod Cl 1,000 ml @ 100 mls/hr Q10H IV Last administered on 03/12/19 05:12; Admin Dose 100 MLS/HR; Start 03/07/19 at 23:17 Diphenhydramine HCl (Benadryl) 25 mg Q6H PRN IV PRURITUS; Start 03/07/19 at 23:30 Enoxaparin Sodium (Lovenox) 40 mg DAILY SC Last administered on 03/12/19 08:16; Admin Dose 40 MG; Start 03/09/19 at 09:00 Simethicone (Mylicon) 80 mg Q6H PRN PO DISTENSION/GAS/BLOATING Last administered on 03/09/19 17:48; Admin Dose 80 MG; Start 03/08/19 at 20:00 Meropenem/Sodium Chloride 50 ml @ 100 mls/hr Q8 IVPB Last administered on 03/12/19 05:11; Admin Dose 100 MLS/HR; Start 03/09/19 at 14:00 Metoclopramide HCl (Reglan) 5 mg Q6H PRN IV nausea, vomiting; Start 03/11/19 at 13:30 MARNI ANAYA MD Mar 12, 2019 11:31
--- NOTE | 2019-03-12 11:32 | CONS ---
Assessment/Plan Assessment/Plan Hospital Course (Demo Recall) No acute events, alert, feels better, afebrile, nad KUB 03/11 revealed worsening ileus versus small bowel obstruction Antimicrobials: Meropenem Physical examination: This is well-developed well-nourished middle-aged man who is alert in no distress. Head atraumatic normocephalic sclera nonicteric vehicle mucosa dry neck is supple chest rise symmetrical breath sounds diminished bases heart S1-S2 abdomen soft bowel sounds present extremities without cyanosis Assessment: 1. Acute gangrenous appendicitis with local peritonitis, status post laparoscopic appendectomy 03/07/19 2. Diarrhea==> C. difficile neg 3. Postop ileus, questionable obstruction Plan: Clinically improved, POD #5, wbc trending down, continue present care, antibiotics, f/u surgical rec-s Consultation Date/Type/Reason Admit Date/Time Mar 07, 2019 at 19:43 Initial Consult Date 03/07/19 Type of Consult id Date/Time of Note DATE: 03/12/19 TIME: 11:30 Exam/Review of Systems Exam Vitals Vital Signs Date Temp Pulse Resp B/P (MAP) Pulse Ox O2 O2 Flow FiO2 Time Delivery Rate 03/12/19 98.6 70 18 128/64 95 Room Air 07:30 (85) 03/10/19 2.0 08:00 Intake and Output 03/11/19 03/11/19 03/12/19 1515:00 23:00 07:00 IntakeIntake Total 460 ml 1582 ml 1050 ml BalanceBalance 460 ml 1582 ml 1050 ml Results Result Diagram: 03/12/19 0459 03/12/19 0459 Results 24hrs Laboratory Tests Test 03/12/19 04:59 White Blood Count 8.9 # Red Blood Count 5.16 Hemoglobin 14.9 Hematocrit 43.4 Mean Corpuscular Volume 84.1 Mean Corpuscular Hemoglobin 28.9 L Mean Corpuscular Hemoglobin Concent 34.3 Red Cell Distribution Width 13.5 Platelet Count 305 # Mean Platelet Volume 10.6 H Immature Granulocytes % 0.600 H Neutrophils % 80.9 H Lymphocytes % 9.9 L Monocytes % 6.8 Eosinophils % 1.2 Basophils % 0.6 Nucleated Red Blood Cells % 0.0 Immature Granulocytes # 0.050 H Neutrophils # 7.2 Lymphocytes # 0.9 Monocytes # 0.6 Eosinophils # 0.1 Basophils # 0.1 Nucleated Red Blood Cells # 0.0 Sodium Level 137 Potassium Level 3.9 Chloride Level 107 Carbon Dioxide Level 20 L Anion Gap 10 Blood Urea Nitrogen 23 H Creatinine 0.89 Est Glomerular Filtrat Rate mL/min > 60 Glucose Level 143 Calcium Level 9.5 Magnesium Level 2.1 Medications Medication Current Medications Ondansetron HCl (Zofran Inj) 4 mg Q6H PRN IV NAUSEA AND/OR VOMITING Last administered on 03/10/19 20:33; Admin Dose 4 MG; Start 03/07/19 at 23:30 Acetaminophen (Tylenol Tab) 650 mg Q6H PRN PO PAIN LEVEL 1-3 OR FEVER Last administered on 03/10/19 01:56; Admin Dose 650 MG; Start 03/07/19 at 23:30 Ibuprofen (Motrin) 600 mg Q6H PRN PO PAIN LEVEL 1-3; Start 03/07/19 at 23:30 Hydromorphone HCl (Dilaudid) 0.5 mg Q4H PRN IV PAIN LEVEL 8-10 Last administered on 03/10/19 18:22; Admin Dose 0.5 MG; Start 03/07/19 at 23:30 Acetaminophen/ Hydrocodone Bitart ([place] (5/325)) 1 tab Q6H PRN PO PAIN LEVEL 4-7 Last administered on 03/10/19 00:28; Admin Dose 1 TAB; Start 03/07/19 at 23:30 Potassium Chloride/Dextrose/ Sod Cl 1,000 ml @ 100 mls/hr Q10H IV Last administered on 03/12/19 05:12; Admin Dose 100 MLS/HR; Start 03/07/19 at 23:17 Diphenhydramine HCl (Benadryl) 25 mg Q6H PRN IV PRURITUS; Start 03/07/19 at 23:30 Enoxaparin Sodium (Lovenox) 40 mg DAILY SC Last administered on 03/12/19 08:16; Admin Dose 40 MG; Start 03/09/19 at 09:00 Simethicone (Mylicon) 80 mg Q6H PRN PO DISTENSION/GAS/BLOATING Last administered on 03/09/19 17:48; Admin Dose 80 MG; Start 03/08/19 at 20:00 Meropenem/Sodium Chloride 50 ml @ 100 mls/hr Q8 IVPB Last administered on 03/12/19at 05:11; Admin Dose 100 MLS/HR; Start 03/09/19 at 14:00 Metoclopramide HCl (Reglan) 5 mg Q6H PRN IV nausea, vomiting; Start 03/11/19 at 13:30 GABRIELA FERNANDEZ NP Mar 12, 2019 11:32
[2019-03-12 14:08] VITALS: BP 123/77; PULSE 70; RESP 18
[2019-03-12] MEDS ORDERED: IOHEXOL 300MG/ML 150 ML BTL ONE (14:51)
[2019-03-12] MEDS ORDERED: SOD CHLORIDE 0.9% 100 ML ONE (14:51)
[2019-03-12 20:30] VITALS: BP 126/84; PULSE 65; RESP 18
[2019-03-13 02:07] VITALS: BP 136/80; PULSE 67; RESP 20
[2019-03-13] MEDS: MEROPENEM 1 GM/50ML(PMX) 50 ML IVPB SCH ×3 (06:42→22:01)
[2019-03-13 07:37] VITALS: BP 120/82; PULSE 60; RESP 18
[2019-03-13] MEDS: ENOXAPARIN 40 MG/0.4 ML SYG SC SCH (08:25)
--- NOTE | 2019-03-13 09:30 | CONS ---
Assessment/Plan Assessment/Plan Hospital Course (Demo Recall) No acute events, CT abd noted Antimicrobials: Meropenem Physical examination: This is well-developed well-nourished middle-aged man who is alert in no distress. Head atraumatic normocephalic sclera nonicteric vehicle mucosa dry neck is supple chest rise symmetrical breath sounds diminished bases heart S1-S2 abdomen soft bowel sounds present extremities without cyanosis Assessment: 1. Acute gangrenous appendicitis with local peritonitis, status post laparoscopic appendectomy 03/07/19 2. Diarrhea==> C. difficile neg 3. Postop ileus, questionable obstruction Plan: Stable POD #6, no abscess, no SBP per CT, will give lat dose abx tomorrow Consultation Date/Type/Reason Admit Date/Time Mar 07, 2019 at 19:43 Initial Consult Date 03/07/19 Type of Consult id Date/Time of Note DATE: 03/13/19 TIME: 09:28 Exam/Review of Systems Exam Vitals Vital Signs Date Temp Pulse Resp B/P (MAP) Pulse Ox O2 O2 Flow FiO2 Time Delivery Rate 03/13/19 97.9 60 18 120/82 96 Room Air 07:37 (95) 03/10/19 2.0 08:00 Intake and Output 03/12/19 03/12/19 03/13/19 1515:00 23:00 07:00 IntakeIntake Total 290 ml 1450 ml 750 ml BalanceBalance 290 ml 1450 ml 750 ml Results Result Diagram: 03/13/19 0514 03/13/19 0514 Results 24hrs Laboratory Tests Test 03/13/19 05:14 White Blood Count 8.9 Red Blood Count 5.36 Hemoglobin 15.5 Hematocrit 46.0 Mean Corpuscular Volume 85.8 Mean Corpuscular Hemoglobin 28.9 L Mean Corpuscular Hemoglobin Concent 33.7 Red Cell Distribution Width 13.4 Platelet Count 342 Mean Platelet Volume 10.6 H Immature Granulocytes % 0.700 H Neutrophils % 77.1 H Lymphocytes % 13.1 L Monocytes % 6.9 Eosinophils % 1.5 Basophils % 0.7 Nucleated Red Blood Cells % 0.0 Immature Granulocytes # 0.060 H Neutrophils # 6.9 Lymphocytes # 1.2 Monocytes # 0.6 Eosinophils # 0.1 Basophils # 0.1 Nucleated Red Blood Cells # 0.0 Sodium Level 141 Potassium Level 3.9 Chloride Level 108 Carbon Dioxide Level 21 Anion Gap 12 Blood Urea Nitrogen 24 H Creatinine 0.91 Est Glomerular Filtrat Rate mL/min > 60 Glucose Level 132 Calcium Level 9.1 Magnesium Level 2.2 Medications Medication Current Medications Ondansetron HCl (Zofran Inj) 4 mg Q6H PRN IV NAUSEA AND/OR VOMITING Last administered on 03/10/19 20:33; Admin Dose 4 MG; Start 03/07/19 at 23:30 Acetaminophen (Tylenol Tab) 650 mg Q6H PRN PO PAIN LEVEL 1-3 OR FEVER Last administered on 03/10/19 01:56; Admin Dose 650 MG; Start 03/07/19 at 23:30 Ibuprofen (Motrin) 600 mg Q6H PRN PO PAIN LEVEL 1-3; Start 03/07/19 at 23:30 Hydromorphone HCl (Dilaudid) 0.5 mg Q4H PRN IV PAIN LEVEL 8-10 Last administered on 03/10/19 18:22; Admin Dose 0.5 MG; Start 03/07/19 at 23:30 Acetaminophen/ Hydrocodone Bitart ([place] (5/325)) 1 tab Q6H PRN PO PAIN LEVEL 4-7 Last administered on 03/10/19 00:28; Admin Dose 1 TAB; Start 03/07/19 at 23:30 Potassium Chloride/Dextrose/ Sod Cl 1,000 ml @ 100 mls/hr Q10H IV Last administered on 03/12/19 22:02; Admin Dose 100 MLS/HR; Start 03/07/19 at 23:17 Diphenhydramine HCl (Benadryl) 25 mg Q6H PRN IV PRURITUS; Start 03/07/19 at 23:30 Enoxaparin Sodium (Lovenox) 40 mg DAILY SC Last administered on 03/13/19 08:25; Admin Dose 40 MG; Start 03/09/19 at 09:00 Simethicone (Mylicon) 80 mg Q6H PRN PO DISTENSION/GAS/BLOATING Last administered on 03/09/19 17:48; Admin Dose 80 MG; Start 03/08/19 at 20:00 Meropenem/Sodium Chloride 50 ml @ 100 mls/hr Q8 IVPB Last administered on 03/13/19 06:42; Admin Dose 100 MLS/HR; Start 03/09/19 at 14:00 Metoclopramide HCl (Reglan) 5 mg Q6H PRN IV nausea, vomiting; Start 03/11/19 at 13:30 GABRIELA FERNANDEZ NP Mar 13, 2019 09:30
[2019-03-13] MEDS: D5W-0.45 NACL + KCL 20 MEQ 1,000 ML IV SCH ×3 (10:57→22:05)
--- NOTE | 2019-03-13 11:04 | PN ---
Date/Time of Note Date/Time of Note DATE: 03/13/19 TIME: 11:03 Assessment/Plan Lines/Catheters IV Catheter Type (from [facility]): Peripheral IV Subjective 24 Hr Interval Summary Patient is 6 days after laparoscopic appendectomy for gangrenous appendicitis with peritonitis. Patient is making slow recovery. He developed severe paralytic ileus postoperatively. Patient having bowel movements. Had episode of emesis yesterday but feels much better this morning. On physical exam his abdomen is softer not that distended not tender. The plan is to advance the diet slowly. We will start clears today. I will follow as needed Exam/Review of Systems Vital Signs Vitals Vital Signs Date Temp Pulse Resp B/P (MAP) Pulse Ox O2 O2 Flow FiO2 Time Delivery Rate 03/13/19 97.9 60 18 120/82 96 Room Air 07:37 (95) 03/10/19 2.0 08:00 Intake and Output 03/12/19 03/12/19 03/13/19 1515:00 23:00 07:00 IntakeIntake Total 290 ml 1450 ml 750 ml BalanceBalance 290 ml 1450 ml 750 ml Results Result Diagram: 03/13/19 0514 03/13/19 0514 LUKE PRESTON MD Mar 13, 2019 11:04
--- NOTE | 2019-03-13 12:01 | PN ---
Date/Time of Note Date/Time of Note DATE: 03/13/19 TIME: 11:55 Assessment/Plan VTE Prophylaxis Risk score (from [facility])>0 risk: 2 SCD applied (from [facility] [place]): Yes Pharmacological prophylaxis: LMWH Lines/Catheters IV Catheter Type (from [facility]): Peripheral IV Assessment/Plan Assessment/Plan 1. Acute perforated gangrenous appendicitis with local peritonitis, s/p lap appendectomy on 03/07/2019, fluid culture positive with multiple bacteria including ESBL E. coli, on meropenem, needs at least one week of meropenem per ID (until 03/15)/ 2. Post op ileus: Started clear liquid diet today, advance as tolerated 3. DVT prophylaxis: lovenox Result Diagram: 03/13/1914 03/13/19 05 Subjective 24 Hr Interval Summary Free Text/Dictation No acute overnight events. Patient hungry. Had small volume diarrhea this morning, passing gas. Exam/Review of Systems Exam Vitals Vital Signs Date Temp Pulse Resp B/P (MAP) Pulse Ox O2 O2 Flow FiO2 Time Delivery Rate 03/13/19 97.9 60 18 120/82 96 Room Air 07:37 (95) 03/10/19 2.0 08:00 Intake and Output 03/12/19 03/12/19 03/13/19 1515:00 23:00 07:00 IntakeIntake Total 290 ml 1450 ml 750 ml BalanceBalance 290 ml 1450 ml 750 ml Exam Constitutional: Well developed man supine in bed, no distress. Head: normocephalic, atraumatic Eyes: nl conjunctiva, EOMI, nl lids ENMT: nl external ears & nose, nl lips & teeth, nl nasal mucosa & septum Neck: supple, non-tender Respiratory: clear to auscultation, normal air movement; No congested cough, No crackles/rales, No diminished breath sounds, No intercostal retraction, No labored breathing, No respirations, No tactile fremitus, No wheezing, No other Cardiovascular: regular rate and rhythm, nl pulses; No bruits, No diastolic murmur, No edema, No gallop, No irregular rhythm, No jugular venous distention (JVD), No murmurs/extra sounds, No rub, No systolic murmur, No S3, No S4, No other Gastrointestinal: Hypoactive bowel sounds. Soft, distended,tympanic. Surgical scars healing well with dermabond. Extremities: normal pulses; No calf tenderness, No cyanosis, No clubbing, No edema, No pitting pedal edema, No palpable cord, No tenderness, No other Results Results 24hrs Laboratory Tests Test 03/13/19 05:14 White Blood Count 8.9 Red Blood Count 5.36 Hemoglobin 15.5 Hematocrit 46.0 Mean Corpuscular Volume 85.8 Mean Corpuscular Hemoglobin 28.9 L Mean Corpuscular Hemoglobin Concent 33.7 Red Cell Distribution Width 13.4 Platelet Count 342 Mean Platelet Volume 10.6 H Immature Granulocytes % 0.700 H Neutrophils % 77.1 H Lymphocytes % 13.1 L Monocytes % 6.9 Eosinophils % 1.5 Basophils % 0.7 Nucleated Red Blood Cells % 0.0 Immature Granulocytes # 0.060 H Neutrophils # 6.9 Lymphocytes # 1.2 Monocytes # 0.6 Eosinophils # 0.1 Basophils # 0.1 Nucleated Red Blood Cells # 0.0 Sodium Level 141 Potassium Level 3.9 Chloride Level 108 Carbon Dioxide Level 21 Anion Gap 12 Blood Urea Nitrogen 24 H Creatinine 0.91 Est Glomerular Filtrat Rate mL/min > 60 Glucose Level 132 Calcium Level 9.1 Magnesium Level 2.2 Medications Medication Current Medications Ondansetron HCl (Zofran Inj) 4 mg Q6H PRN IV NAUSEA AND/OR VOMITING Last administered on 03/10/19at 20:33; Admin Dose 4 MG; Start 03/07/19 at 23:30 Acetaminophen (Tylenol Tab) 650 mg Q6H PRN PO PAIN LEVEL 1-3 OR FEVER Last administered on 03/10/19at 01:56; Admin Dose 650 MG; Start 03/07/19 at 23:30 Ibuprofen (Motrin) 600 mg Q6H PRN PO PAIN LEVEL 1-3; Start 03/07/19 at 23:30 Hydromorphone HCl (Dilaudid) 0.5 mg Q4H PRN IV PAIN LEVEL 8-10 Last administered on 03/10/19at 18:22; Admin Dose 0.5 MG; Start 03/07/19 at 23:30 Acetaminophen/ Hydrocodone Bitart ([place] (5/325)) 1 tab Q6H PRN PO PAIN LEVEL 4-7 Last administered on 03/10/19at 00:28; Admin Dose 1 TAB; Start 03/07/19 at 23:30 Potassium Chloride/Dextrose/ Sod Cl 1,000 ml @ 100 mls/hr Q10H IV Last administered on 03/13/19at 10:57; Admin Dose 100 MLS/HR; Start 03/07/19 at 23:17 Diphenhydramine HCl (Benadryl) 25 mg Q6H PRN IV PRURITUS; Start 03/07/19 at 23:30 Enoxaparin Sodium (Lovenox) 40 mg DAILY SC Last administered on 03/13/19at 08:25; Admin Dose 40 MG; Start 03/09/19 at 09:00 Simethicone (Mylicon) 80 mg Q6H PRN PO DISTENSION/GAS/BLOATING Last administered on 03/09/19at 17:48; Admin Dose 80 MG; Start 03/08/19 at 20:00 Meropenem/Sodium Chloride 50 ml @ 100 mls/hr Q8 IVPB Last administered on 03/13/19at 06:42; Admin Dose 100 MLS/HR; Start 03/09/19 at 14:00 Metoclopramide HCl (Reglan) 5 mg Q6H PRN IV nausea, vomiting; Start 03/11/19 at 13:30 PATRICIA CHANCE MD Mar 13, 2019 12:01
[2019-03-13 14:06] VITALS: BP 134/81; PULSE 60; RESP 18
[2019-03-13 20:06] VITALS: BP 122/85; PULSE 62; RESP 18
[2019-03-14 01:41] VITALS: BP 119/79; PULSE 64; RESP 18
[2019-03-14] MEDS: MEROPENEM 1 GM/50ML(PMX) 50 ML IVPB SCH ×3 (05:32→21:28)
[2019-03-14] MEDS: ENOXAPARIN 40 MG/0.4 ML SYG SC SCH (08:40)
--- NOTE | 2019-03-14 11:17 | PN ---
Date/Time of Note Date/Time of Note DATE: 03/14/19 TIME: 11:16 Assessment/Plan VTE Prophylaxis Risk score (from Ns)>0 risk: 3 SCD applied (from Ns): No SCD contraindicated: other (no) Pharmacological prophylaxis: LMWH Lines/Catheters IV Catheter Type (from Nrs): Peripheral IV Urinary Cath still in place: No Assessment/Plan Assessment/Plan 1. Acute perforated gangrenous appendicitis with local peritonitis, s/p lap appendectomy on 03/07/2019, fluid culture positive with multiple bacteria including ESBL E. coli, on meropenem, needs at least one week of meropenem per ID (until 03/15) 2. Post op ileus: Tolerating clear liquid diet, I advanced to full liquids to day. 3. DVT prophylaxis: lovenox Result Diagram: 03/13/1951303/13/19513 Subjective 24 Hr Interval Summary Free Text/Dictation No acute overnight events. Patient tolerating clear liquids. No nausea or vomiting. Pain controlled, not requiring any analgesics. Exam/Review of Systems Exam Vitals Vital Signs Date Temp Pulse Resp B/P (MAP) Pulse Ox O2 O2 Flow FiO2 Time Delivery Rate 03/14/19 98.6 64 18 119/79 96 Room Air 01:41 (92) 03/10/19 2.0 08:00 Intake and Output 03/13/19 03/13/19 03/14/19 1515:00 23:00 07:00 IntakeIntake Total 350 ml 850 ml 750 ml BalanceBalance 350 ml 850 ml 750 ml Exam Constitutional: Well developed man supine in bed, no distress. Head: normocephalic, atraumatic Eyes: nl conjunctiva, EOMI, nl lids ENMT: nl external ears & nose, nl lips & teeth, nl nasal mucosa & septum Neck: supple, non-tender Respiratory: clear to auscultation, normal air movement; No congested cough, No crackles/rales, No diminished breath sounds, No intercostal retraction, No labored breathing, No respirations, No tactile fremitus, No wheezing, No other Cardiovascular: regular rate and rhythm, nl pulses; No bruits, No diastolic murmur, No edema, No gallop, No irregular rhythm, No jugular venous distention (JVD), No murmurs/extra sounds, No rub, No systolic murmur, No S3, No S4, No other Gastrointestinal: Hypoactive bowel sounds. Soft, distended,tympanic. Surgical scars healing well with dermabond. Extremities: normal pulses; No calf tenderness, No cyanosis, No clubbing, No edema, No pitting pedal edema, No palpable cord, No tenderness, No other Medications Medication Current Medications Ondansetron HCl (Zofran Inj) 4 mg Q6H PRN IV NAUSEA AND/OR VOMITING Last administered on 03/10/19 20:33; Admin Dose 4 MG; Start 03/07/19 at 23:30 Acetaminophen (Tylenol Tab) 650 mg Q6H PRN PO PAIN LEVEL 1-3 OR FEVER Last administered on 03/10/19 01:56; Admin Dose 650 MG; Start 03/07/19 at 23:30 Ibuprofen (Motrin) 600 mg Q6H PRN PO PAIN LEVEL 1-3; Start 03/07/19 at 23:30 Acetaminophen/ Hydrocodone Bitart ([place] (5/325)) 1 tab Q6H PRN PO PAIN LEVEL 4-7 Last administered on 03/10/19 00:28; Admin Dose 1 TAB; Start 03/07/19 at 23:30 Diphenhydramine HCl (Benadryl) 25 mg Q6H PRN IV PRURITUS; Start 03/07/19 at 23:30 Enoxaparin Sodium (Lovenox) 40 mg DAILY SC Last administered on 03/14/19 08:40; Admin Dose 40 MG; Start 03/09/19 at 09:00 Simethicone (Mylicon) 80 mg Q6H PRN PO DISTENSION/GAS/BLOATING Last administered on 03/09/19 17:48; Admin Dose 80 MG; Start 03/08/19 at 20:00 Meropenem/Sodium Chloride 50 ml @ 100 mls/hr Q8 IVPB Last administered on 03/14/19 05:32; Admin Dose 100 MLS/HR; Start 03/09/19 at 14:00 Metoclopramide HCl (Reglan) 5 mg Q6H PRN IV nausea, vomiting; Start 03/11/19 at 13:30 PATRICIA CHANCE MD Mar 14, 2019 11:17
--- NOTE | 2019-03-14 15:25 | CONS ---
Assessment/Plan Assessment/Plan Hospital Course (Demo Recall) No acute events, alert, feels good, no fevers KUB 03/11 revealed worsening ileus versus small bowel obstruction Antimicrobials: Meropenem Physical examination: This is well-developed well-nourished middle-aged man who is alert in no distress. Head atraumatic normocephalic sclera no nicteric vehicle mucosa dry neck is supple chest rise symmetrical breath sounds diminished bases heart S1-S2 abdomen soft bowel sounds present extremities without cyanosis Assessment: 1. Acute gangrenous appendicitis with local peritonitis, status post laparoscopic appendectomy 03/07/19 2. Diarrhea==> C. difficile neg 3. Postop ileus, questionable obstruction Plan:Doing better, POD #6, last dose of antibiotics tomorrow Consultation Date/Type/Reason Admit Date/Time Mar 07, 2019 at 19:43 Initial Consult Date 03/07/19 Type of Consult id Date/Time of Note DATE: 03/14/19 TIME: 15:24 Exam/Review of Systems Exam Vitals Vital Signs Date Temp Pulse Resp B/P (MAP) Pulse Ox O2 O2 Flow FiO2 Time Delivery Rate 03/14/19 98.6 64 18 119/79 96 Room Air 01:41 (92) 03/10/19 2.0 08:00 Intake and Output 03/13/19 03/13/19 03/14/19 1515:00 23:00 07:00 IntakeIntake Total 350 ml 850 ml 750 ml BalanceBalance 350 ml 850 ml 750 ml Results Result Diagram: 03/13/19 0514 03/13/19 0514 Medications Medication Current Medications Ondansetron HCl (Zofran Inj) 4 mg Q6H PRN IV NAUSEA AND/OR VOMITING Last administered on 03/10/19at 20:33; Admin Dose 4 MG; Start 03/07/19 at 23:30 Acetaminophen (Tylenol Tab) 650 mg Q6H PRN PO PAIN LEVEL 1-3 OR FEVER Last administered on 03/10/19at 01:56; Admin Dose 650 MG; Start 03/07/19 at 23:30 Ibuprofen (Motrin) 600 mg Q6H PRN PO PAIN LEVEL 1-3; Start 03/07/19 at 23:30 Acetaminophen/ Hydrocodone Bitart ([place] (5/325)) 1 tab Q6H PRN PO PAIN LEVEL 4-7 Last administered on 03/10/19at 00:28; Admin Dose 1 TAB; Start 03/07/19 at 23:30 Diphenhydramine HCl (Benadryl) 25 mg Q6H PRN IV PRURITUS; Start 03/07/19 at 23:30 Enoxaparin Sodium (Lovenox) 40 mg DAILY SC Last administered on 03/14/19at 08:40; Admin Dose 40 MG; Start 03/09/19 at 09:00 Simethicone (Mylicon) 80 mg Q6H PRN PO DISTENSION/GAS/BLOATING Last administered on 03/09/19at 17:48; Admin Dose 80 MG; Start 03/08/19 at 20:00 Meropenem/Sodium Chloride 50 ml @ 100 mls/hr Q8 IVPB Last administered on 03/14/19at 13:49; Admin Dose 100 MLS/HR; Start 03/09/19 at 14:00 Metoclopramide HCl (Reglan) 5 mg Q6H PRN IV nausea, vomiting; Start 03/11/19 at 13:30 GABRIELA FERNANDEZ NP Mar 14, 2019 15:25
[2019-03-14 19:55] VITALS: BP 121/78; PULSE 60; RESP 18
[2019-03-15 02:00] VITALS: BP 127/74; PULSE 56; RESP 18
[2019-03-15] MEDS: MEROPENEM 1 GM/50ML(PMX) 50 ML IVPB SCH ×3 (05:51→21:38)
[2019-03-15 08:00] VITALS: BP 129/78; PULSE 53; RESP 16
[2019-03-15] MEDS: ENOXAPARIN 40 MG/0.4 ML SYG SC SCH (08:34)
--- NOTE | 2019-03-15 10:56 | CONS ---
Assessment/Plan Assessment/Plan Hospital Course (Demo Recall) No acute events over night, no fevers, tolerates diet Antimicrobials: Meropenem Physical examination: This is well-developed well-nourished middle-aged man who is alert in no distress. Head atraumatic normocephalic sclera nonicteric vehicle mucosa dry neck is supple chest rise symmetrical breath sounds diminished bases heart S1-S2 abdomen soft bowel sounds present extremities without cyanosis Assessment: 1. Acute gangrenous appendicitis with local peritonitis, status post lap aroscopic appendectomy 03/07/19 2. Diarrhea==> C. difficile neg 3. Postop ileus, questionable obstruction Plan: Stable POD #7, completing abx, last dose today Consultation Date/Type/Reason Admit Date/Time Mar 07, 2019 at 19:43 Initial Consult Date 03/07/19 Type of Consult id Date/Time of Note DATE: 03/15/19 TIME: 10:55 Exam/Review of Systems Exam Vitals Vital Signs Date Temp Pulse Resp B/P (MAP) Pulse Ox O2 O2 Flow FiO2 Time Delivery Rate 03/15/19 98.6 53 16 129/78 95 Room Air 08:00 (95) 53 Intake and Output 03/14/19 03/14/19 03/15/19 1414:59 22:59 06:59 IntakeIntake Total 50 ml 50 ml 50 ml BalanceBalance 50 ml 50 ml 50 ml Results Result Diagram: 03/13/1914 03/13/1914 Medications Medication Current Medications Ondansetron HCl (Zofran Inj) 4 mg Q6H PRN IV NAUSEA AND/OR VOMITING Last administered on 03/10/19at 20:33; Admin Dose 4 MG; Start 03/07/19 at 23:30 Acetaminophen (Tylenol Tab) 650 mg Q6H PRN PO PAIN LEVEL 1-3 OR FEVER Last administered on 03/10/19at 01:56; Admin Dose 650 MG; Start 03/07/19 at 23:30 Ibuprofen (Motrin) 600 mg Q6H PRN PO PAIN LEVEL 1-3; Start 03/07/19 at 23:30 Acetaminophen/ Hydrocodone Bitart ([place] (5/325)) 1 tab Q6H PRN PO PAIN LEVEL 4-7 Last administered on 03/10/19at 00:28; Admin Dose 1 TAB; Start 03/07/19 at 23:30 Diphenhydramine HCl (Benadryl) 25 mg Q6H PRN IV PRURITUS; Start 03/07/19 at 23:30 Enoxaparin Sodium (Lovenox) 40 mg DAILY SC Last administered on 03/15/19at 08: 34; Admin Dose 40 MG; Start 03/09/19 at 09:00 Simethicone (Mylicon) 80 mg Q6H PRN PO DISTENSION/GAS/BLOATING Last administered on 03/09/19at 17:48; Admin Dose 80 MG; Start 03/08/19 at 20:00 Meropenem/Sodium Chloride 50 ml @ 100 mls/hr Q8 IVPB Last administered on 03/15/19at 05:51; Admin Dose 100 MLS/HR; Start 03/09/19 at 14:00 Metoclopramide HCl (Reglan) 5 mg Q6H PRN IV nausea, vomiting; Start 03/11/19 at 13:30 GABRIELA FERNANDEZ NP Mar 15, 2019 10:56
--- NOTE | 2019-03-15 11:17 | PN ---
Date/Time of Note Date/Time of Note DATE: 03/15/19 TIME: 11:15 Assessment/Plan VTE Prophylaxis Risk score (from [facility] [place])>0 risk: 3 SCD applied (from Ns): Yes Pharmacological prophylaxis: LMWH Lines/Catheters IV Catheter Type (from [facility]): Peripheral IV Urinary Cath still in place: No Assessment/Plan Assessment/Plan 1. Acute perforated gangrenous appendicitis with local peritonitis, s/p lap appendectomy on 03/07/2019, fluid culture positive with multiple bacteria including ESBL E. coli, treated with meropenem 2. Post op ileus versus partial SBO, SBFT today 3. DVT prophylaxis: lovenox Result Diagram: 03/13/1951303/13/19513 Subjective 24 Hr Interval Summary Free Text/Dictation abdominal distension Exam/Review of Systems Exam Vitals Vital Signs Date Temp Pulse Resp B/P (MAP) Pulse Ox O2 O2 Flow FiO2 Time Delivery Rate 03/15/19 98.6 53 16 129/78 95 Room Air 08:00 (95) 53 Intake and Output 03/14/19 03/14/19 03/15/19 1515:00 23:00 07:00 IntakeIntake Total 50 ml 50 ml 50 ml BalanceBalance 50 ml 50 ml 50 ml Constitutional: alert, oriented, well developed Psych: no complaints, nl mood/affect Head: normocephalic, atraumatic Eyes: nl conjunctiva, EOMI, nl lids ENMT: nl external ears & nose, nl lips & teeth, nl nasal mucosa & septum Neck: supple, non-tender Respiratory: clear to auscultation, normal air movement; No congested cough, No crackles/rales, No diminished breath sounds, No intercostal retraction, No labored breathing, No respirations, No tactile fremi tus, No wheezing, No other Cardiovascular: regular rate and rhythm, nl pulses; No bruits, No diastolic murmur, No edema, No gallop, No irregular rhythm, No jugular venous distention (JVD), No murmurs/extra sounds, No rub, No systolic murmur, No S3, No S4, No other Gastrointestinal: nl liver, spleen, non-tender Musculoskeletal: nl extremities to inspection Extremities: normal pulses; No calf tenderness, No cyanosis, No clubbing, No edema, No pitting pedal edema, No palpable cord, No tenderness, No other Neurological: [employer] II-XII intact, nl mental status, nl speech Medications Medication Current Medications Ondansetron HCl (Zofran Inj) 4 mg Q6H PRN IV NAUSEA AND/OR VOMITING Last administered on 03/10/19 20:33; Admin Dose 4 MG; Start 03/07/19 at 23:30 Acetaminophen (Tylenol Tab) 650 mg Q6H PRN PO PAIN LEVEL 1-3 OR FEVER Last administered on 03/10/19 01:56; Admin Dose 650 MG; Start 03/07/19 at 23:30 Ibuprofen (Motrin) 600 mg Q6H PRN PO PAIN LEVEL 1-3; Start 03/07/19 at 23:30 Acetaminophen/ Hydrocodone Bitart ([place] (5/325)) 1 tab Q6H PRN PO PAIN LEVEL 4-7 Last administered on 03/10/19 00:28; Admin Dose 1 TAB; Start 03/07/19 at 23:30 Diphenhydramine HCl (Benadryl) 25 mg Q6H PRN IV PRURITUS; Start 03/07/19 at 23:30 Enoxaparin Sodium (Lovenox) 40 mg DAILY SC Last administered on 03/15/19 08:34; Admin Dose 40 MG; Start 03/09/19 at 09:00 Simethicone (Mylicon) 80 mg Q6H PRN PO DISTENSION/GAS/BLOATING Last administ ered on 03/09/19at 17:48; Admin Dose 80 MG; Start 03/08/19 at 20:00 Meropenem/Sodium Chloride 50 ml @ 100 mls/hr Q8 IVPB Last administered on 03/15/19 05:51; Admin Dose 100 MLS/HR; Start 03/09/19 at 14:00 Metoclopramide HCl (Reglan) 5 mg Q6H PRN IV nausea, vomiting; Start 03/11/19 at 13:30 MARNI ANAYA MD Mar 15, 2019 11:17
[2019-03-15] MEDS ORDERED: IOHEXOL 300MG/ML 150 ML BTL ONE (13:44)
[2019-03-15 14:00] VITALS: BP 115/78; PULSE 60; RESP 16
[2019-03-15 19:35] VITALS: BP 135/86; PULSE 59; RESP 17
[2019-03-16 01:21] VITALS: BP 107/61; PULSE 54; RESP 18
[2019-03-16] MEDS: MEROPENEM 1 GM/50ML(PMX) 50 ML IVPB SCH (06:12)
[2019-03-16 07:55] VITALS: BP 124/72; PULSE 65; RESP 20
[2019-03-16] MEDS: ENOXAPARIN 40 MG/0.4 ML SYG SC SCH (09:45)
--- NOTE | 2019-03-16 12:55 | CONS ---
Assessment/Plan Assessment/Plan Hospital Course (Demo Recall) Alert, feels good, no n/v/d/ no fevers Antimicrobials: completed s/p Meropenem Physical examination: This is well-developed well-nourished middle-aged man who is alert in no distress. Head atraumatic normocephalic sclera nonicteric vehicle mucosa dry neck is supple chest rise symmetrical breath sounds diminished bases heart S1-S2 abdomen soft bowel sounds present extremities without cyanosis Assessment: 1. Acute gangrenous appendicitis with local peritonitis, status post laparoscopic appendectomy 03/07/19 2. Diarrhea==> C. difficile neg 3. Postop ileus Plan: Stable POD #8, completed abx Consultation Date/Type/Reason Admit Date/Time Mar 07, 2019 at 19:43 Initial Consult Date 03/07/19 Type of Consult id Date/Time of Note DATE: 03/16/19 TIME: 12:54 Exam/Review of Systems Exam Vitals Vital Signs Date Temp Pulse Resp B/P (MAP) Pulse Ox O2 O2 Flow FiO2 Time Delivery Rate 03/16/19 98.3 65 20 124/72 96 07:55 (89) 03/15/19 Room Air 14:00 Intake and Output 03/15/19 03/15/19 03/16/19 1515:00 23:00 07:00 IntakeIntake Total 50 ml 530 ml 50 ml BalanceBalance 50 ml 530 ml 50 ml Results Result Diagram: 03/16/19 0552 03/16/19 0552 Results 24hrs Laboratory Tests Test 03/16/19 05:52 White Blood Count 7.1 # Red Blood Count 5.13 Hemoglobin 14.9 Hematocrit 43.5 Mean Corpuscular Volume 84.8 Mean Corpuscular Hemoglobin 29.0 Mean Corpuscular Hemoglobin Concent 34.3 Red Cell Distribution Width 12.9 Platelet Count 413 # Mean Platelet Volume 10.4 Immature Granulocytes % 0.300 Neutrophils % 71.3 Lymphocytes % 20.4 Monocytes % 5.5 Eosinophils % 1.8 Basophils % 0.7 Nucleated Red Blood Cells % 0.0 Immature Granulocytes # 0.020 Neutrophils # 5.1 Lymphocytes # 1.5 Monocytes # 0.4 Eosinophils # 0.1 Basophils # 0.1 Nucleated Red Blood Cells # 0.0 Sodium Level 137 Potassium Level 4.3 Chloride Level 103 Carbon Dioxide Level 26 Anion Gap 8 Blood Urea Nitrogen 20 Creatinine 0.89 Est Glomerular Filtrat Rate mL/min > 60 Glucose Level 116 Calcium Level 9.2 Medications Medication Current Medications Ondansetron HCl (Zofran Inj) 4 mg Q6H PRN IV NAUSEA AND/OR VOMITING Last administered on 03/10/19at 20:33; Admin Dose 4 MG; Start 03/07/19 at 23:30 Acetaminophen (Tylenol Tab) 650 mg Q6H PRN PO PAIN LEVEL 1-3 OR FEVER Last ad ministered on 03/10/19at 01:56; Admin Dose 650 MG; Start 03/07/19 at 23:30 Ibuprofen (Motrin) 600 mg Q6H PRN PO PAIN LEVEL 1-3; Start 03/07/19 at 23:30 Acetaminophen/ Hydrocodone Bitart ([place] (5/325)) 1 tab Q6H PRN PO PAIN LEVEL 4-7 Last administered on 03/10/19 00:28; Admin Dose 1 TAB; Start 03/07/19 at 23:30 Diphenhydramine HCl (Benadryl) 25 mg Q6H PRN IV PRURITUS; Start 03/07/19 at 23:30 Enoxaparin Sodium (Lovenox) 40 mg DAILY SC Last administered on 03/16/19at 09:45; Admin Dose 40 MG; Start 03/09/19 at 09:00 Simethicone (Mylicon) 80 mg Q6H PRN PO DISTENSION/GAS/BLOATING Last administered on 03/09/19at 17:48; Admin Dose 80 MG; Start 03/08/19 at 20:00 Metoclopramide HCl (Reglan) 5 mg Q6H PRN IV nausea, vomiting; Start 03/11/19 at 13:30 GABRIELA FERNANDEZ NP Mar 16, 2019 12:55
--- NOTE | 2019-03-16 13:39 | PN ---
Date/Time of Note Date/Time of Note DATE: 03/16/19 TIME: 13:36 Assessment/Plan VTE Prophylaxis Risk score (from Ns)>0 risk: 3 SCD applied (from Nsg): Yes Pharmacological prophylaxis: LMWH Lines/Catheters IV Catheter Type (from Nrsg): [place] Urinary Cath still in place: No Assessment/Plan Assessment/Plan 1. Post op ileus, still with dilated small bowel loops up to 8 cm, no mech anical obstruction on SBFT, reglan q6h, advance diet, KUB in am 2. Acute perforated gangrenous appendicitis with local peritonitis, s/p lap appendectomy on 03/07/2019, fluid culture positive with multiple bacteria including ESBL E. coli, treated 3. DVT prophylaxis: lovenox Result Diagram: 03/16/19 0552 03/16/19 0552 Results 24hrs Laboratory Tests Test 03/16/19 05:52 White Blood Count 7.1 # Red Blood Count 5.13 Hemoglobin 14.9 Hematocrit 43.5 Mean Corpuscular Volume 84.8 Mean Corpuscular Hemoglobin 29.0 Mean Corpuscular Hemoglobin Concent 34.3 Red Cell Distribution Width 12.9 Platelet Count 413 # Mean Platelet Volume 10.4 Immature Granulocytes % 0.300 Neutrophils % 71.3 Lymphocytes % 20.4 Monocytes % 5.5 Eosinophils % 1.8 Basophils % 0.7 Nucleated Red Blood Cells % 0.0 Immature Granulocytes # 0.020 Neutrophils # 5.1 Lymphocytes # 1.5 Monocytes # 0.4 Eosinophils # 0.1 Basophils # 0.1 Nucleated Red Blood Cells # 0.0 Sodium Level 137 Potassium Level 4.3 Chloride Level 103 Carbon Dioxide Level 26 Anion Gap 8 Blood Urea Nitrogen 20 Creatinine 0.89 Est Glomerular Filtrat Rate mL/min > 60 Glucose Level 116 Calcium Level 9.2 Subjective 24 Hr Interval Summary Free Text/Dictation no abdominal pain, no nausea or vomiting Exam/Review of Systems Exam Vitals Vital Signs Date Temp Pulse Resp B/P (MAP) Pulse Ox O2 O2 Flow FiO2 Time Delivery Rate 03/16/19 98.3 65 20 124/72 96 07:55 (89) 03/15/19 Room Air 14:00 Intake and Output 03/15/19 03/15/19 03/16/19 1515:00 23:00 07:00 IntakeIntake Total 50 ml 530 ml 50 ml BalanceBalance 50 ml 530 ml 50 ml Constitutional: alert, oriented, well developed Psych: no complaints, nl mood/affect Head: normocephalic, atraumatic Eyes: nl conjunctiva, EOMI, nl lids ENMT: nl external ears & nose, nl lips & teeth, nl nasal mucosa & septum Neck: supple, non-tender Respiratory: clear to auscultation, normal air movement; No congested cough, No crackles/rales, No diminished breath sounds, No intercostal retraction, No labored breathing, No respirations, No tactile fremitus, No wheezing, No other Cardiovascular: regular rate and rhythm, nl pulses; No bruits, No diastolic murmur, No edema, No gallop, No irregular rhythm, No jugular venous distention (JVD), No murmurs/extra sounds, No rub, No systolic murmur, No S3, No S4, No other Gastrointestinal: nl liver, spleen, distended Musculoskeletal: nl extremities to inspection Extremities: normal pulses; No calf tenderness, No cyanosis, No clubbing, No edema, No pitting pedal edema, No palpable cord, No tenderness, No other Neurological: [employer] INVESTIGATOR II-XII intact, nl mental status, nl speech, nl strength Skin: nl turgor Results Results 24hrs Laboratory Tests Test 03/16/19 05:52 White Blood Count 7.1 # Red Blood Count 5.13 Hemoglobin 14.9 Hematocrit 43.5 Mean Corpuscular Volume 84.8 Mean Corpuscular Hemoglobin 29.0 Mean Corpuscular Hemoglobin Concent 34.3 Red Cell Distribution Width 12.9 Platelet Count 413 # Mean Platelet Volume 10.4 Immature Granulocytes % 0.300 Neutrophils % 71.3 Lymphocytes % 20.4 Monocytes % 5.5 Eosinophils % 1.8 Basophils % 0.7 Nucleated Red Blood Cells % 0.0 Immature Granulocytes # 0.020 Neutrophils # 5.1 Lymphocytes # 1.5 Monocytes # 0.4 Eosinophils # 0.1 Basophils # 0.1 Nucleated Red Blood Cells # 0.0 Sodium Level 137 Potassium Level 4.3 Chloride Level 103 Carbon Dioxide Level 26 Anion Gap 8 Blood Urea Nitrogen 20 Creatinine 0.89 Est Glomerular Filtrat Rate mL/min > 60 Glucose Level 116 Calcium Level 9.2 Medications Medication Current Medications Ondansetron HCl (Zofran Inj) 4 mg Q6H PRN IV NAUSEA AND/OR VOMITING Last administered on 03/10/19 20:33; Admin Dose 4 MG; Start 03/07/19 at 23:30 Acetaminophen (Tylenol Tab) 650 mg Q6H PRN PO PAIN LEVEL 1-3 OR FEVER Last administered on 03/10/19at 01:56; Admin Dose 650 MG; Start 03/07/19 at 23:30 Ibuprofen (Motrin) 600 mg Q6H PRN PO PAIN LEVEL 1-3; Start 03/07/19 at 23:30 Acetaminophen/ Hydrocodone Bitart ([place] (5/325)) 1 tab Q6H PRN PO PAIN LEVEL 4-7 Last administered on 03/10/19at 00:28; Admin Dose 1 TAB; Start 03/07/19 at 23:30 Diphenhydramine HCl (Benadryl) 25 mg Q6H PRN IV PRURITUS; Start 03/07/19 at 23:30 Enoxaparin Sodium (Lovenox) 40 mg DAILY SC Last administered on 03/16/19at 09:45; Admin Dose 40 MG; Start 03/09/19 at 09:00 Simethicone (Mylicon) 80 mg Q6H PRN PO DISTENSION/GAS/BLOATING Last administered on 03/09/19at 17:48; Admin Dose 80 MG; Start 03/08/19 at 20:00 Metoclopramide HCl (Reglan) 5 mg Q6H PRN IV nausea, vomiting; Start 03/11/19 at 13:30 MARNI ANAYA MD Mar 16, 2019 13:39
[2019-03-16 14:39] VITALS: BP 118/78; PULSE 66; RESP 22
[2019-03-16 19:57] VITALS: BP 121/78; PULSE 60; RESP 20
[2019-03-16] MEDS: METOCLOPRAMIDE 10 MG INJ IV SCH (21:36)
[2019-03-17 02:27] VITALS: BP 114/72; PULSE 54; RESP 20
[2019-03-17] MEDS: METOCLOPRAMIDE 10 MG INJ IV SCH ×3 (03:36→15:30)
[2019-03-17 07:50] VITALS: BP 108/57; PULSE 62; RESP 20
[2019-03-17] MEDS: ENOXAPARIN 40 MG/0.4 ML SYG SC SCH (09:18)
--- NOTE | 2019-03-17 11:49 | CONS ---
Assessment/Plan Assessment/Plan Hospital Course (Demo Recall) All noted, no fevers, nad, KUB improved Antimicrobials: completed s/p Meropenem Physical examination: This is well-developed well-nourished middle-aged man who is alert in no distress. Head atraumatic normocephalic sclera nonicteric vehicle mucosa dry neck is supple chest rise symmetrical breath sounds diminished bases heart S1-S2 abdomen soft bowel sounds present extremities without cyanosis Assessment: 1. Acute gangrenous appendicitis with local peritonitis, status post laparoscopic appendectomy 03/07/19 2. Diarrhea==> C. difficile neg 3. Postop ileus, resolving Plan: Stable, off abx Consultation Date/Type/Reason Admit Date/Time Mar 07, 2019 at 19:43 Initial Consult Date 03/07/19 Type of Consult id Date/Time of Note DATE: 03/17/19 TIME: 11:49 Exam/Review of Systems Exam Vitals Vital Signs Date Temp Pulse Resp B/P (MAP) Pulse Ox O2 O2 Flow FiO2 Time Delivery Rate 03/17/19 98.3 62 20 108/57 97 07:50 (74) 03/15/19 Room Air 14:00 Intake and Output 03/16/19 03/16/19 03/17/19 1515:00 23:00 07:00 IntakeIntake Total 1540 ml 1440 ml 240 ml BalanceBalance 1540 ml 1440 ml 240 ml Results Result Diagram: 03/17/19 0545 03/17/19 0545 Results 24hrs Laboratory Tests Test 03/17/19 05:45 White Blood Count 6.9 Red Blood Count 4.97 Hemoglobin 14.4 Hematocrit 42.2 Mean Corpuscular Volume 84.9 Mean Corpuscular Hemoglobin 29.0 Mean Corpuscular Hemoglobin Concent 34.1 Red Cell Distribution Width 12.9 Platelet Count 416 H Mean Platelet Volume 9.9 Immature Granulocytes % 0.400 Neutrophils % 74.1 Lymphocytes % 18.1 Monocytes % 4.8 Eosinophils % 1.7 Basophils % 0.9 Nucleated Red Blood Cells % 0.0 Immature Granulocytes # 0.030 Neutrophils # 5.1 Lymphocytes # 1.3 Monocytes # 0.3 Eosinophils # 0.1 Basophils # 0.1 Nucleated Red Blood Cells # 0.0 Sodium Level 138 Potassium Level 4.5 Chloride Level 103 Carbon Dioxide Level 26 Anion Gap 9 Blood Urea Nitrogen 23 H Creatinine 0.90 Est Glomerular Filtrat Rate mL/min > 60 Glucose Level 108 Calcium Level 8.9 Magnesium Level 2.3 Medications Medication Current Medications Ondansetron HCl (Zofran Inj) 4 mg Q6H PRN IV NAUSEA AND/OR VOMITING Last administered on 03/10/19 20:33; Admin Dose 4 MG; Start 03/07/19 at 23:30 Acetaminophen (Tylenol Tab) 650 mg Q6H PRN PO PAIN LEVEL 1-3 OR FEVER Last administered on 03/10/19at 01:56; Admin Dose 650 MG; Start 03/07/19 at 23:30 Ibuprofen (Motrin) 600 mg Q6H PRN PO PAIN LEVEL 1-3; Start 03/07/19 at 23:30 Acetaminophen/ Hydrocodone Bitart ([place] (5/325)) 1 tab Q6H PRN PO PAIN LEVEL 4-7 Last administered on 03/10/19 00:28; Admin Dose 1 TAB; Start 03/07/19 at 23:30 Diphenhydramine HCl (Benadryl) 25 mg Q6H PRN IV PRURITUS; Start 03/07/19 at 23:30 Enoxaparin Sodium (Lovenox) 40 mg DAILY SC Last administered on 03/17/19at 0 9:18; Admin Dose 40 MG; Start 03/09/19 at 09:00 Simethicone (Mylicon) 80 mg Q6H PRN PO DISTENSION/GAS/BLOATING Last administered on 03/09/19at 17:48; Admin Dose 80 MG; Start 03/08/19 at 20:00 Metoclopramide HCl (Reglan) 5 mg Q6H IV Last administered on 03/17/19at 09:12; Admin Dose 5 MG; Start 03/17/19 at 09:30 GABRIELA FERNANDEZ NP Mar 17, 2019 11:49
[2019-03-17 13:36] VITALS: BP 132/80; PULSE 74; RESP 20
--- NOTE | 2019-03-17 14:32 | DS ---
Date/Time of Note Date/Time of Note DATE: 03/17/19 TIME: 14:27 Discharge Summary Admission/Discharge Info Admit Date/Time Mar 07, 2019 at 19:43 Discharge Date/Time Discharge Diagnosis 1. Acute perforated gangrenous appendicitis with local peritonitis, s/p lap a ppendectomy on 03/07/2019, fluid culture positive with multiple bacteria including ESBL E. coli, treated, stable, follow up with surgery 2. Post op ileus, resolved Patient Condition: Stable Hospital Course 58-year-old male presents with abdominal pain secondary to Acute phlegmonous gangrenous appendicitis status post laparoscopic appendectomy on 03/07/2019. Patient developed severe postop ileus after the surgery that gradually improved and resolved. Patient tolerates diet, has BMs, no nausea or vomiting. He will follow up with surgery in office. The fluid from surgery culture positive with multiple bacteria including ESBL E. coli that he was treated with meropenem for 7 days. No fever or chill. Home Meds Active Scripts Omeprazole* (Omeprazole*) 40 Mg Capsule., 40 MG PO DAILY, #30 CAP Prov:AWA RAYO PA-C 09/10/16 Discontinued Scripts Hydrocodone Bit-Acetaminophen* (Elkins*) 10-325 Mg Tablet, 1 TAB PO Q6 PRN for PAIN, #10 TAB Prov:KATHI CULVER MD 12/20/15 Ondansetron Hcl* (Zofran* ODT) 8 mg -ODT Tab.disper, 8 MG PO Q6 PRN for NAUSEA AND/OR VOMITING, #20 TAB Prov:KATHI CULVER MD 12/20/15 Omeprazole* (Prilosec*) 40 Mg Capsule., 40 MG PO DAILY, #60 CAP Prov:KATHI CULVER MD 12/20/15 Follow-up Plan surgery in one week Primary Care Provider Care Physician No Primary Pending Labs Laboratory Tests Test 03/17/19 05:45 White Blood Count 6.9 10^3/ul (4.8-10.8) Red Blood Count 4.97 10^6/ul (4.70-6.10) Hemoglobin 14.4 g/dl (14.0-18.0) Hematocrit 42.2 % (42.0-52.0) Mean Corpuscular Volume 84.9 fl (82.0-101.0) Mean Corpuscular Hemoglobin 29.0 pg (29.0-33.0) Mean Corpuscular Hemoglobin Concent 34.1 g/dl (32.0-37.0) Red Cell Distribution Width 12.9 % (11.5-14.5) Platelet Count 416 10^3/UL (140-415) Mean Platelet Volume 9.9 fl (7.4-10.4) Immature Granulocytes % 0.400 % (0.001-0.429) Neutrophils % 74.1 % (39.0-77.0) Lymphocytes % 18.1 % (15.0-51.0) Monocytes % 4.8 % (0.0-11.0) Eosinophils % 1.7 % (0.0-7.0) Basophils % 0.9 % (0.0-2.0) Nucleated Red Blood Cells % 0.0 /100WBC (0.0-0.0) Immature Granulocytes # 0.030 10^3/ul (0.0-0.031) Neutrophils # 5.1 10^3/ul (1.6-7.5) Lymphocytes # 1.3 10^3/ul (0.8-2.9) Monocytes # 0.3 10^3/ul (0.3-0.9) Eosinophils # 0.1 10^3/ul (0.0-0.5) Basophils # 0.1 10^3/ul (0.0-0.1) Nucleated Red Blood Cells # 0.0 10^3/ul (0.0-0.0) Sodium Level 138 mmol/L (135-144) Potassium Level 4.5 mmol/L (3.5-5.1) Chloride Level 103 mmol/L (97-110) Carbon Dioxide Level 26 mmol/L (21-31) Anion Gap 9 (5-13) Blood Urea Nitrogen 23 mg/dl (7-20) Creatinine 0.90 mg/dl (0.61-1.24) Est Glomerular Filtrat Rate mL/min > 60 mL/min (>60) Glucose Level 108 mg/dl (70-220) Calcium Level 8.9 mg/dl (8.4-10.2) Magnesium Level 2.3 mg/dl (1.7-2.5) MARNI ANAYA MD Mar 17, 2019 14:31
== END 2019-03-17 16:15 | disposition home or self-care (01) | DRG 342 ==
LOC: E/R 17:31 → REC 19:43 → 2NE 03-08 01:22
PROVIDERS: ADMIT Internal Medicine; ATTEND Internal Medicine
PROC: 0DTJ4ZZ Resection of Appendix, Percutaneous Endoscopic Approach (ICD-10-PCS; principal; 2019-03-07 21:00)
DX: K35.31 Acute appendicitis with localized peritonitis and gangrene, without perforation (principal); K91.30 Postprocedural intestinal obstruction, unspecified as to partial versus complete; R19.7 Diarrhea, unspecified
CPT/HCPCS: 36415; 71045; 74018; 74176; 74177; 74250; 80048; 80053; 83605; 83690; 83735; 84100; 84484; 85025; 85610; 85730; 87070; 87075; 87102; 88304; 93005; 93971; 96365; 96375; 96376; J0131; J1100; J1170; J1650; J1885; J2185; J2250; J2270; J2405; J2543; J2765; J3010; J3480; J7030; Q9967